=== PATIENT | male | born 1950 | race Caucasian/White ===

== ENCOUNTER → 2016-06-06 | Outpatient (CLI) | payer MEDICARE, OTHER ==
[2016-04-21 15:00] VITALS: BP 81/45
[~2016-06-06] MED LIST: ACET325T9 PO; ALBU2.5V5 NEB; ALBU8.5H3 IH; ASPI81TA2 PO; CALC-47 PO; CHOL4POW PO; CYCL10TA2 PO; DEXA4TAB PO; DICY20TA3 PO; FLUT16SP NS; FURO-69 PO; Ferrous Sulfate PO; GEMF600T PO; GLYB5TAB PO; HYDR25TA9 PO; HYTRIN PO; IBUP200T43 PO; INSU100I16 SQ; LEVO500T38 PO; LIDODERM; LISI-338 PO; Levofloxacin PO; MAG DELAY64 MG PO; MORP15TA PO; MORP30TA3 PO; OMEP20TA PO; ONDA8TAB12 PO; PROC10TA57 PO; TAMS0.4C97 PO; TERA2CAP3 PO; TIOT18CA IH; TRAZ50TA15 PO; VANC1PLA10 IV; triglide PO
--- NOTE | 2016-06-06 09:59 | RAD ---
EXAM: Head CT without contrast. HISTORY: Fall. TECHNIQUE: Computed tomographic images of the head were obtained without contrast. COMPARISON: None. FINDINGS: There is no evidence of hemorrhage. There is no mass effect or midline shift. There is agenesis of the corpus callosum. There is ex vacuo dilatation of the occipital and temporal horns of the lateral ventricles due to surrounding cerebral volume loss. There is slight ectopia of the right cerebellar tonsils. The quintero-white matter differentiation pattern is intact. The orbits, paranasal sinuses and mastoid air cells are unremarkable. No calvarial lesion is seen. There is slight increased density within the right posterior scalp due to scarring or a soft tissue contusion. IMPRESSION: 1. No acute intracranial finding. 2. Slight increased density within the right posterior scalp due to scarring or a contusion. 3. Agenesis of the corpus callosum and dilated posterior lateral ventricles due to posterior cerebral volume loss. 4. Suspected slight ectopia of the right cerebellar tonsils. PQRS Compliance Statement: One or more of the following individualized dose reduction techniques were utilized for this examination: 1. Automated exposure control 2. Adjustment of the mA and/or kV according to patient size 3. Use of iterative reconstruction technique
== END | disposition home or self-care (01) ==
LOC: CT 09:11
PROVIDERS: ATTEND Family Medicine
DX: S00.80XD Unspecified superficial injury of other part of head, subsequent encounter (principal); Z79.01 Long term (current) use of anticoagulants; W19.XXXD Unspecified fall, subsequent encounter; F17.200 Nicotine dependence, unspecified, uncomplicated
CPT/HCPCS: 70450

== ENCOUNTER 2016-06-16 11:53 | Inpatient (IN) | payer MEDICARE, OTHER ==
[~2016-06-16] VITALS: Ht 177.8 cm; Wt 73.5 kg
[~2016-06-16 11:53] MED LIST changes: -ALBU2.5V5 NEB; -DEXA4TAB PO; -FLUT16SP NS; -Ferrous Sulfate PO; -Levofloxacin PO; -MORP15TA PO; -TAMS0.4C97 PO; -VANC1PLA10 IV; -triglide PO
[2016-06-16] MEDS ORDERED: ONDANSETRON PF 4 MG/2 ML VIAL. IV PRN (12:30)
[2016-06-16] MEDS ORDERED: DIPHENHYDRAMINE HCL 25 MG CAPSULE PO PRN (12:30)
[2016-06-16] MEDS: INSULIN ASPART 300 UNITS/3 ML INSULN.PEN SQ SCH ×3 (12:30→20:40)
[2016-06-16] MEDS ORDERED: DEXTROSE 50% 25 GM / 50ML DISP.SYRIN. IV PRN (12:30)
[2016-06-16] MEDS ORDERED: PROCHLORPERAZINE 10 MG TABLET. PO PRN (12:45)
[2016-06-16] MEDS ORDERED: ACETAMINOPHEN 325 MG TABLET PO PRN (12:45)
[2016-06-16] MEDS ORDERED: IBUPROFEN 800 MG TABLET. PO PRN (12:45)
[2016-06-16] MEDS ORDERED: CYCLOBENZAPRINE 10 MG TABLET. PO PRN (12:45)
[2016-06-16 12:58] LABS: BASO % 0 % (0-3); EOS % 1 % (0-3); HEMATOCRIT 20.6 % (39.0-53.0); HEMOGLOBIN 7.1 g/dL (13.0-17.5); LYMPH # 1.1 x10^3/uL (1.0-4.8); LYMPH % 27 % (24-48); MEAN CORPUSCULAR HEMOGLOBIN 36 pg (25-35); MEAN CORPUSCULAR HGB CONC 34 g/dL (31-37); MEAN CORPUSCULAR VOLUME 106 fL (79-100); MONO # 0.6 x10^3/uL (0.0-1.1); MONO % 15 % (0-9); NEUT # 2.3 x10^3uL (1.8-7.7); NEUT % 56 % (31-73); PLATELET COUNT 90 x10^3/uL (140-400); RED BLOOD COUNT 1.94 x10^6/uL (4.30-5.70); RED CELL DISTRIBUTION WIDTH 20.5 % (11.5-14.5)
[2016-06-16 13:15] LABS: ALBUMIN 2.7 g/dL (3.4-5.0); ALBUMIN/GLOBULIN RATIO 0.9 (1.0-1.7); CALCIUM 7.6 mg/dL (8.5-10.1); CREATININE 1.3 mg/dL (0.7-1.3); GFR 55.1; POTASSIUM 4.3 mmol/L (3.5-5.1); TOTAL BILIRUBIN 0.4 mg/dL (0.2-1.0); TOTAL PROTEIN 5.8 g/dL (6.4-8.2)
[2016-06-16] MEDS: MORPHINE SULFATE 5 MG/ML SYRINGE. IV PRN ×2 (13:24→20:07)
[2016-06-16] MEDS: FUROSEMIDE 20 MG/2 ML VIAL IVP SCH (13:24)
[2016-06-16] MEDS ORDERED: TAMS0.4C97 PO (13:37)
[2016-06-16] MEDS ORDERED: MORP15TA PO (13:37)
[2016-06-16] MEDS ORDERED: ONDANSETRON ODT 4 MG TAB.RAPDIS PO PRN (13:45)
[2016-06-16] MEDS ORDERED: triglide PO (13:45)
[2016-06-16] MEDS ORDERED: DEXA4TAB PO (13:47)
[2016-06-16] MEDS ORDERED: FLUT16SP NS (13:50)
[2016-06-16 13:51] LABS: ANISOCYTOSIS MOD; PLT ESTIMATE DECREASED (ADEQUATE)
--- NOTE | 2016-06-16 13:51 | RAD ---
Bilateral lower extremity venous Doppler ultrasound History: Right greater than left lower extremity swelling. Comparison: Bilateral lower extremity venous Doppler 08/27/2015. Procedure: Color Doppler, spectral Doppler, and grayscale images are obtained with and without compression in the area of the common femoral vein, superficial femoral vein - femoral vein junction, main femoral vein (superficial femoral vein) and popliteal vein. Veins of the proximal calf are also imaged. Findings: There is normal duplex flow, color flow and compressibility of all visualized vein segments. No evidence of deep venous thrombosis is present. Impression: No evidence of lower extremity deep venous thrombosis.
[2016-06-16 13:52] LABS: POLYCHROMASIA SLIGHT; TEAR DROP CELLS OCC
[2016-06-16 13:53] LABS: POIKILOCYTOSIS SLIGHT
[2016-06-16 13:54] LABS: OVALOCYTES FEW
[2016-06-16 13:55] LABS: SCHISTOCYTES OCC
[2016-06-16 14:05] LABS: SEDIMENTATION RATE 42 (0-15)
[2016-06-16 14:11] VITALS: BP 127/71
[2016-06-16] MEDS: DICYCLOMINE HCL 20 MG TABLET PO SCH ×3 (14:48→20:05)
--- NOTE | 2016-06-16 14:59 | RAD ---
Chest, 2 views, 06/16/2016: History: Shortness of breath Comparison is made to a study from 04/21/2016. A left-sided Port-A-Cath remains in place extending to the level of the atriocaval junction. Spinal stimulator leads extend into the mid thoracic spinal canal. The heart size is normal. The lungs are hyperexpanded. Previously seen right upper lobe infiltrate has largely cleared. There are scattered parenchymal scars. There is new mild right middle lobe infiltrate. No pleural fluid or pneumothorax is evident. Old healed rib fractures are present on the left. IMPRESSION: 1. Emphysema with parenchymal scarring. 2. Interval clearing of the previously seen right upper lobe pneumonia. 3. New mild right middle lobe infiltrate suggesting pneumonia.
[2016-06-16] MEDS ORDERED: VANCOMYCIN 1.75 GM in IV NORMAL SALINE 500ML 500 ML IV ONE (15:00)
[2016-06-16 15:14] VITALS: BP 108/71
[2016-06-16] MEDS: VANCOMYCIN PER PHARMACY MC PRN (16:00)
[2016-06-16] MEDS ORDERED: INSULN ASP PRT/INSULIN ASPART 300 UNITS/3 ML INSULN.PEN. SQ SCH (16:30)
[2016-06-16] MEDS: CALCIUM CARB/VIT D3 500/200 TABLET PO SCH (17:05)
[2016-06-16 18:24] LABS: BILIRUBIN,URINE NEG (NEG); CLARITY,URINE CLEAR; COLOR,URINE STRAW; GLUCOSE,URINE NEG (NEG)
[2016-06-16 18:25] LABS: BACTERIA,URINE 0 /HPF (0-FEW); NITRITE,URINE NEG (NEG); RBC,URINE OCC /HPF (0-2); UROBILINOGEN,URINE 0.2 mg/dL (0.2 mg/dL); WBC,URINE OCC /HPF (0-4)
[2016-06-16 19:00] VITALS: BP 115/68
[2016-06-16] MEDS: ALBUTEROL SULFATE 2.5 MG/3 ML NEBU. NEB SCH (20:00)
[2016-06-16] MEDS: GEMFIBROZIL 600 MG TABLET. PO SCH (20:06)
[2016-06-16] MEDS: GLYBURIDE 5 MG TABLET PO SCH (20:06)
[2016-06-16] MEDS ORDERED: ALBUTEROL SULFATE 8GM INHALER. IH SCH (21:00)
[2016-06-16] MEDS: TAMSULOSIN 0.4 MG CAP.ER.24H. PO SCH (21:00)
[2016-06-16] MEDS ORDERED: MORPHINE ER 30 MG TABLET.ER PO SCH (21:00)
[2016-06-16] MEDS ORDERED: traZODone 50 MG TABLET. PO SCH (21:00)
[2016-06-16] MEDS: MORPHINE SULFATE 10 MG/ML SYRINGE. IV PRN (22:50)
[2016-06-16 23:33] VITALS: BP 128/76
[2016-06-17 06:47] VITALS: BP 104/57
[2016-06-17] MEDS: INSULIN ASPART 300 UNITS/3 ML INSULN.PEN SQ SCH ×4 (07:30→21:00)
[2016-06-17] MEDS ORDERED: TAMSULOSIN 0.4 MG CAP.ER.24H. PO SCH (08:00)
[2016-06-17] MEDS: CHOLESTYRAMINE/ASPARTAME 4 GM PACKET PO SCH (08:09)
[2016-06-17] MEDS: DICYCLOMINE HCL 20 MG TABLET PO SCH ×4 (08:09→20:04)
[2016-06-17] MEDS: PANTOPRAZOLE 40 MG TABLET. PO SCH (08:09)
[2016-06-17] MEDS: FUROSEMIDE 20 MG/2 ML VIAL IVP SCH (08:09)
[2016-06-17] MEDS: ASPIRIN 81 MG TAB.CHEW PO SCH (08:09)
[2016-06-17] MEDS: CALCIUM CARB/VIT D3 500/200 TABLET PO SCH ×2 (08:09→16:55)
[2016-06-17 08:37] LABS: BASO % 0 % (0-3); EOS % 1 % (0-3); HEMATOCRIT 22.1 % (39.0-53.0); HEMOGLOBIN 7.6 g/dL (13.0-17.5); LYMPH % 20 % (24-48); MEAN CORPUSCULAR HEMOGLOBIN 36 pg (25-35); MEAN CORPUSCULAR HGB CONC 34 g/dL (31-37); MEAN CORPUSCULAR VOLUME 106 fL (79-100); MONO % 20 % (0-9); NEUT % 60 % (31-73); PLATELET COUNT 84 x10^3/uL (140-400); RED BLOOD COUNT 2.08 x10^6/uL (4.30-5.70); RED CELL DISTRIBUTION WIDTH 21.5 % (11.5-14.5)
[2016-06-17 08:44] LABS: ALBUMIN 2.5 g/dL (3.4-5.0); ALBUMIN/GLOBULIN RATIO 0.8 (1.0-1.7); CALCIUM 7.7 mg/dL (8.5-10.1); CREATININE 1.3 mg/dL (0.7-1.3); GFR 55.1; POTASSIUM 4.2 mmol/L (3.5-5.1); TOTAL BILIRUBIN 0.5 mg/dL (0.2-1.0); TOTAL PROTEIN 5.7 g/dL (6.4-8.2)
[2016-06-17] MEDS ORDERED: HYTRIN PO SCH (09:00)
[2016-06-17] MEDS ORDERED: LISINOPRIL 5 MG TABLET. PO SCH (09:00)
[2016-06-17] MEDS ORDERED: HYDROCHLOROTHIAZIDE 25 MG TABLET PO SCH (09:00)
[2016-06-17] MEDS ORDERED: MAGNESIUM CHLORIDE ER 64 MG TABLET.ER PO SCH (09:00)
[2016-06-17] MEDS ORDERED: TERAZOSIN 1 MG CAPSULE. PO SCH (09:00)
[2016-06-17 09:28] LABS: % BANDS 5 % (0-9); % BASOS 0 % (0-3); % EOS 2 % (0-5); % LYMPHS 27 % (24-48); % MONOS 6 % (0-10); % SEGS 60 % (35-66); ANISOCYTOSIS MOD; PLT ESTIMATE DECREASED (ADEQUATE); POIKILOCYTOSIS PRESENT
[2016-06-17 09:29] LABS: SCHISTOCYTES OCC
[2016-06-17] MEDS ORDERED: ENOXAPARIN 40 MG/0.4 ML DISP.SYRIN. SQ SCH (09:45)
[2016-06-17 10:09] VITALS: BP 114/66
[2016-06-17] MEDS: ALBUTEROL SULFATE 2.5 MG/3 ML NEBU. NEB SCH ×2 (11:49→20:38)
--- NOTE | 2016-06-17 13:07 | PN ---
DATE: 06/17/2016 SUBJECTIVE: A 65-year-old gentleman in with cellulitis to his right lower leg as well as pneumonia. The patient says he is feeling somewhat better this morning. He is on IV antibiotic therapy as well as some IV Lasix and making good progress overall. Otherwise, the patient seems to be resting fairly comfortably. Vital signs include blood pressure of 105/60, respiratory rate 18, pulse 70, afebrile, good oxygen saturation 94%. Chest x-ray as noted, there is a right upper lobe infiltrative process. The venous Dopplers were negative for blood clots. Otherwise, we will go ahead and get a D-dimer and make further evaluation on him as indicated. PHYSICAL EXAMINATION: LUNGS: Otherwise, lungs diminished but clear, somewhat coarse breath sounds in the right lung. CARDIOVASCULAR: Regular sinus rhythm. ABDOMEN: Soft, nontender. EXTREMITIES: Right leg less swollen and was markedly erythematous and swollen. He has wrinkling noted, less intense redness. Pulses noted distally. The patient continued to be monitored continue on IV antibiotic therapy. IMPRESSION: Cellulitis of the right lower leg as well as pneumonia and the patient receiving chemotherapy, immunocompromised. Ydptipiv-dv-klzwzt protein malnutrition, albumin 2.7. MARCE WARREN MD DR: HERB/hernan JOB#: [id number] / [id number]
[2016-06-17 14:31] VITALS: BP 107/67
[2016-06-17] MEDS: VANCOMYCIN 1 GM in IV NORMAL SALINE 250ML 250 ML IV SCH (15:41)
[2016-06-17] MEDS ORDERED: IV NORMAL SALINE 250ML 250 ML ONE (15:43)
[2016-06-17 19:08] LABS: IRON,SERUM 22 ug/dL (65-175)
[2016-06-17 19:51] VITALS: BP 109/68
[2016-06-17] MEDS: GEMFIBROZIL 600 MG TABLET. PO SCH (20:03)
[2016-06-17] MEDS: TAMSULOSIN 0.4 MG CAP.ER.24H. PO SCH (20:03)
[2016-06-17] MEDS: MORPHINE SULFATE 5 MG/ML SYRINGE. IV PRN (20:04)
[2016-06-17] MEDS: GLYBURIDE 5 MG TABLET PO SCH (21:00)
[2016-06-17 23:07] LABS: HEMOGLOBIN A1C 7.5 % (4.8-5.6)
[2016-06-18] VITALS (13 sets, daily range): BP systolic 98–137; BP diastolic 58–79
[2016-06-18] MEDS: MORPHINE SULFATE 5 MG/ML SYRINGE. IV PRN ×3 (02:05→23:13)
[2016-06-18 06:17] LABS: BASO % 0 % (0-3); EOS % 1 % (0-3); LYMPH # 1.1 x10^3/uL (1.0-4.8); LYMPH % 28 % (24-48); MEAN CORPUSCULAR HEMOGLOBIN 37 pg (25-35); MEAN CORPUSCULAR HGB CONC 35 g/dL (31-37); MEAN CORPUSCULAR VOLUME 105 fL (79-100); MONO # 0.9 x10^3/uL (0.0-1.1); MONO % 24 % (0-9); NEUT # 1.8 x10^3uL (1.8-7.7); NEUT % 46 % (31-73); PLATELET COUNT 71 x10^3/uL (140-400); RED BLOOD COUNT 1.79 x10^6/uL (4.30-5.70); RED CELL DISTRIBUTION WIDTH 20.5 % (11.5-14.5); WHITE BLOOD COUNT 3.8 x10^3/uL (4.0-11.0)
[2016-06-18 06:18] LABS: CALCIUM 7.5 mg/dL (8.5-10.1); CREATININE 1.2 mg/dL (0.7-1.3); GFR 60.4; POTASSIUM 3.9 mmol/L (3.5-5.1)
[2016-06-18 06:22] LABS: HEMATOCRIT 18.7 % (39.0-53.0); HEMOGLOBIN 6.5 g/dL (13.0-17.5)
[2016-06-18] MEDS: INSULIN ASPART 300 UNITS/3 ML INSULN.PEN SQ SCH ×4 (07:30→21:00)
[2016-06-18] MEDS ORDERED: IV NORMAL SALINE 250ML 250 ML ONE (08:18)
[2016-06-18] MEDS: FUROSEMIDE 20 MG/2 ML VIAL IVP SCH (08:23)
[2016-06-18] MEDS: DICYCLOMINE HCL 20 MG TABLET PO SCH ×4 (08:29→20:05)
[2016-06-18] MEDS: PANTOPRAZOLE 40 MG TABLET. PO SCH (08:29)
[2016-06-18] MEDS: ASPIRIN 81 MG TAB.CHEW PO SCH (08:29)
[2016-06-18] MEDS: CALCIUM CARB/VIT D3 500/200 TABLET PO SCH ×2 (08:29→17:39)
[2016-06-18] MEDS: CHOLESTYRAMINE/ASPARTAME 4 GM PACKET PO SCH (08:29)
[2016-06-18] MEDS ORDERED: ZINC OXIDE 4IN X 10YD TOPICAL BANDAGE TP ONE (09:45)
[2016-06-18] MEDS: ALBUTEROL SULFATE 2.5 MG/3 ML NEBU. NEB SCH ×2 (10:45→20:50)
[2016-06-18] MEDS ORDERED: DIPHENHYDRAMINE HCL 25 MG CAPSULE PO PRN (12:30)
[2016-06-18] MEDS: VANCOMYCIN 1 GM in IV NORMAL SALINE 250ML 250 ML IV SCH ×2 (14:46→21:56)
[2016-06-18 15:33] LABS: VANC TR 9.2 mcg/mL (10.0-20.0)
[2016-06-18] MEDS: VANCOMYCIN PER PHARMACY MC PRN (16:05)
[2016-06-18] MEDS: GEMFIBROZIL 600 MG TABLET. PO SCH (20:05)
[2016-06-18] MEDS: TAMSULOSIN 0.4 MG CAP.ER.24H. PO SCH (20:05)
[2016-06-18] MEDS: GLYBURIDE 5 MG TABLET PO SCH (21:00)
[2016-06-18] MEDS ORDERED: TAMSULOSIN 0.4 MG CAP.ER.24H. PO SCH (21:00)
[2016-06-18 21:19] LABS: FECAL OB PT NEGATIVE (NEG)
[2016-06-18 22:37] LABS: BILIRUBIN,URINE NEG (NEG); CLARITY,URINE CLEAR; COLOR,URINE STRAW; GLUCOSE,URINE NEG (NEG)
[2016-06-18 22:38] LABS: BACTERIA,URINE FEW /HPF (0-FEW); NITRITE,URINE NEG (NEG); RBC,URINE OCC /HPF (0-2); SQUAMOUS EPITHELIAL CELL,UR OCC /LPF; UROBILINOGEN,URINE 0.2 mg/dL (0.2 mg/dL); WBC,URINE OCC /HPF (0-4)
[2016-06-18 22:58] LABS: HEMATOCRIT 24.4 % (39.0-53.0); HEMOGLOBIN 8.5 g/dL (13.0-17.5)
[2016-06-19 00:21] VITALS: BP 113/79
[2016-06-19 05:27] LABS: BASO % 0 % (0-3); EOS % 0 % (0-3); HEMATOCRIT 24.3 % (39.0-53.0); HEMOGLOBIN 8.4 g/dL (13.0-17.5); LYMPH # 1.1 x10^3/uL (1.0-4.8); LYMPH % 23 % (24-48); MEAN CORPUSCULAR HEMOGLOBIN 34 pg (25-35); MEAN CORPUSCULAR HGB CONC 35 g/dL (31-37); MEAN CORPUSCULAR VOLUME 99 fL (79-100); MONO # 0.9 x10^3/uL (0.0-1.1); MONO % 19 % (0-9); NEUT # 2.7 x10^3uL (1.8-7.7); NEUT % 57 % (31-73); PLATELET COUNT 67 x10^3/uL (140-400); RED BLOOD COUNT 2.46 x10^6/uL (4.30-5.70); RED CELL DISTRIBUTION WIDTH 21.4 % (11.5-14.5); WHITE BLOOD COUNT 4.7 x10^3/uL (4.0-11.0)
[2016-06-19] MEDS: MORPHINE SULFATE 5 MG/ML SYRINGE. IV PRN (05:27)
[2016-06-19 05:28] LABS: CALCIUM 7.4 mg/dL (8.5-10.1); CREATININE 1.1 mg/dL (0.7-1.3); GFR 66.8; POTASSIUM 3.5 mmol/L (3.5-5.1)
[2016-06-19 05:35] VITALS: BP 114/74
[2016-06-19] MEDS: INSULIN ASPART 300 UNITS/3 ML INSULN.PEN SQ SCH ×4 (07:28→20:29)
[2016-06-19] MEDS: CALCIUM CARB/VIT D3 500/200 TABLET PO SCH ×2 (07:31→17:26)
[2016-06-19] MEDS: PANTOPRAZOLE 40 MG TABLET. PO SCH (07:31)
[2016-06-19] MEDS: MORPHINE SULFATE 10 MG/ML SYRINGE. IV PRN ×3 (07:45→20:27)
[2016-06-19] MEDS: DICYCLOMINE HCL 20 MG TABLET PO SCH ×4 (09:07→20:23)
[2016-06-19] MEDS: ASPIRIN 81 MG TAB.CHEW PO SCH (09:07)
[2016-06-19] MEDS: VANCOMYCIN 1 GM in IV NORMAL SALINE 250ML 250 ML IV SCH ×2 (09:08→20:22)
[2016-06-19] MEDS: FUROSEMIDE 20 MG/2 ML VIAL IVP SCH (09:09)
[2016-06-19] MEDS: ALBUTEROL SULFATE 2.5 MG/3 ML NEBU. NEB SCH ×2 (09:25→21:22)
[2016-06-19] MEDS: CHOLESTYRAMINE/ASPARTAME 4 GM PACKET PO SCH (10:04)
[2016-06-19 11:00] VITALS: BP 122/65
[2016-06-19] MEDS: FERROUS SULFATE 325 MG TABLET PO SCH (11:26)
[2016-06-19 20:09] VITALS: BP 99/59
[2016-06-19] MEDS: TAMSULOSIN 0.4 MG CAP.ER.24H. PO SCH (20:23)
[2016-06-19] MEDS: GEMFIBROZIL 600 MG TABLET. PO SCH (20:23)
[2016-06-19] MEDS: GLYBURIDE 5 MG TABLET PO SCH (20:35)
--- NOTE | 2016-06-19 22:19 | PN ---
DATE: SUBJECTIVE: The patient is a gentleman admitted for cellulitis to his legs as well as pneumonia and in those regards seems to be doing much better. He also had loss of blood, not quite sure where is this getting from, may have been related to his chemotherapy ____ up to 8.4, 24 hours after 2 units of packed RBCs. He had an elevated temperature with it but Benadryl brought it down. He says he feels much better this morning. OBJECTIVE: VITAL SIGNS: Blood pressure 110/70, respiratory rate 20, pulse 70, afebrile. LUNGS: Clear. CARDIOVASCULAR: Regular sinus rhythm. ABDOMEN: Soft. EXTREMITIES: Left lower leg markedly more petechial than it is hard, but we will continue with dressings on him. He seems to be making good progress overall and will continue to be on IV antibiotic therapy. We will repeat chest x-ray in the morning and see if that pneumonia clears. IMPRESSION: Pneumonia of unspecified etiology, cellulitis of the left lower extremity, anemia, probably secondary to chemotherapy and history of pancreatic cancer. MARCE WARREN MD DR: HERB/hernan JOB#: [id number] / [id number]
[2016-06-19 23:35] VITALS: BP 103/63
[2016-06-20] MEDS: MORPHINE SULFATE 10 MG/ML SYRINGE. IV PRN ×2 (02:30→08:40)
[2016-06-20 06:15] LABS: BASO % 0 % (0-3); EOS % 1 % (0-3); HEMATOCRIT 24.2 % (39.0-53.0); HEMOGLOBIN 8.4 g/dL (13.0-17.5); LYMPH # 1.1 x10^3/uL (1.0-4.8); LYMPH % 23 % (24-48); MEAN CORPUSCULAR HEMOGLOBIN 35 pg (25-35); MEAN CORPUSCULAR HGB CONC 35 g/dL (31-37); MEAN CORPUSCULAR VOLUME 100 fL (79-100); MONO # 0.9 x10^3/uL (0.0-1.1); MONO % 19 % (0-9); NEUT # 2.7 x10^3uL (1.8-7.7); NEUT % 57 % (31-73); PLATELET COUNT 78 x10^3/uL (140-400); RED BLOOD COUNT 2.42 x10^6/uL (4.30-5.70); RED CELL DISTRIBUTION WIDTH 21.4 % (11.5-14.5); WHITE BLOOD COUNT 4.8 x10^3/uL (4.0-11.0)
[2016-06-20 06:25] LABS: CALCIUM 7.3 mg/dL (8.5-10.1); CREATININE 1.1 mg/dL (0.7-1.3); GFR 66.8; POTASSIUM 3.9 mmol/L (3.5-5.1)
[2016-06-20 07:01] LABS: % BANDS 2 % (0-9); % EOS 1 % (0-5); % LYMPHS 20 % (24-48); % METAS 1 % (0-0); % MONOS 12 % (0-10); % SEGS 64 % (35-66); NUCLEATED RBC 1
[2016-06-20 07:02] LABS: PLT ESTIMATE DECREASED (ADEQUATE); POLYCHROMASIA MOD; TOXIC GRANULATION SLIGHT
[2016-06-20 07:04] LABS: ANISOCYTOSIS MOD
[2016-06-20 07:05] LABS: OVALOCYTES OCC; TEAR DROP CELLS OCC
[2016-06-20 07:09] LABS: SCHISTOCYTES OCC
[2016-06-20] MEDS: INSULIN ASPART 300 UNITS/3 ML INSULN.PEN SQ SCH ×2 (07:30→12:11)
[2016-06-20] MEDS: ASPIRIN 81 MG TAB.CHEW PO SCH (08:33)
[2016-06-20] MEDS: DICYCLOMINE HCL 20 MG TABLET PO SCH ×2 (08:33→13:41)
[2016-06-20] MEDS: CALCIUM CARB/VIT D3 500/200 TABLET PO SCH (08:33)
[2016-06-20] MEDS: CHOLESTYRAMINE/ASPARTAME 4 GM PACKET PO SCH (08:33)
[2016-06-20] MEDS: PANTOPRAZOLE 40 MG TABLET. PO SCH (08:33)
[2016-06-20] MEDS: FUROSEMIDE 20 MG/2 ML VIAL IVP SCH (08:34)
[2016-06-20] MEDS: VANCOMYCIN 1 GM in IV NORMAL SALINE 250ML 250 ML IV SCH (08:39)
[2016-06-20 09:12] LABS: VANC TR 18.2 mcg/mL (10.0-20.0)
[2016-06-20] MEDS: VANCOMYCIN PER PHARMACY MC PRN (09:52)
[2016-06-20] MEDS: ALBUTEROL SULFATE 2.5 MG/3 ML NEBU. NEB SCH (10:43)
--- NOTE | 2016-06-20 10:51 | PN ---
DATE: He is on ICU bed #6. SUBJECTIVE: The patient, of course, came in initially with cellulitis to his leg as well as pneumonia; however, during the night, his hemoglobin dropped down to 6.5 and 18 this morning, white count dropped down to 3.8. He says he does see any signs of bleeding. He does have a colostomy bag and that is negative, so where this blood is going is another issue. PHYSICAL EXAMINATION: GENERAL: He is alert and oriented. His speech is fluent, spontaneous. He is bright as usual. VITAL SIGNS: Blood pressure 98/60, respiratory rate 18, pulse 76. He has been in low-grade temperature. LUNGS: Otherwise, lungs are diminished. Some crackles in the right lung base of the lung. CARDIOVASCULAR: Regular sinus rhythm. ABDOMEN: Soft, nontender. Colostomy bag intact. EXTREMITIES: No clubbing or cyanosis. Marked erythema noted to the left lower leg, but markedly improved. IMPRESSION: Therefore of cellulitis to the leg, pneumonia of unspecified etiology, history of pancreatic cancer, now anemia, probable acute gastrointestinal bleed, cellulitis to the leg, immunocompromised secondary to chemotherapy, afezoxjc-xl-xrkxax protein malnutrition. PLAN: Continue with blood transfusions, IV antibiotic therapy and close monitoring. MARCE WARREN MD DR: HERB/hernan JOB#: [id number] / [id number]
[2016-06-20 11:09] VITALS: BP 114/76
--- NOTE | 2016-06-20 11:45 | DS ---
DATE OF DISCHARGE: 06/20/2016 HOSPITAL COURSE: The patient is a 65-year-old gentleman who is being treated for pancreatic cancer at , came in with cellulitis to his right lower leg. The patient was placed on IV antibiotic therapy, already had a port in place and continued IV antibiotic therapy through the report. He was noted on regular chest x-ray that he had some pneumonic process. Continued on IV antibiotic therapy for that as well as leg got improved and he made good progress there. His hemoglobin, however, did drop down to 6.5 and 18.7. Blood transfusion of 2 units packed to 8.4 and 24, probably secondary to his chemotherapy. Otherwise, his blood sugars were up and down as he is diabetic and the patient's vancomycin levels were followed by pharmacy. In any case, the patient made good progress during the rest of his hospitalization and he was discharged home to follow up with for his pancreatic cancer. His will continue IV antibiotic therapy for his leg and pneumonia as an outpatient. He has CESAR hose some type of Unna boot to that right lower leg, but that markedly improved as well. IMPRESSION: Therefore, cellulitis to the right lower leg, pneumonia of unspecified etiology, immunocompromised patient secondary to chemotherapy, pancreatic cancer, moderate to severe protein malnutrition. MARCE WARREN MD DR: HERB/hernan JOB#: [id number] / [id number]
[2016-06-20] MEDS: FERROUS SULFATE 325 MG TABLET PO SCH (12:09)
[2016-06-20] MEDS ORDERED: VANC1PLA10 IV (12:47)
[2016-06-20] MEDS ORDERED: ALBU2.5V5 NEB (12:47)
[2016-06-20] MEDS ORDERED: Ferrous Sulfate PO (12:47)
[2016-06-20] MEDS ORDERED: Levofloxacin PO (13:46)
[2016-06-20] MEDS ORDERED: VANCOMYCIN 1 GM in IV NORMAL SALINE 250ML 250 ML IV ONE (14:00)
[2016-06-20] MEDS ORDERED: LEVOFLOXACIN 750 MG TABLET PO SCH (21:00)
== END 2016-06-20 15:30 | disposition home health service (06) | DRG 435 ==
LOC: ICU 11:53
PROVIDERS: ADMIT Family Medicine; ATTEND Family Medicine
PROC: 30233N1 Transfusion of Nonautologous Red Blood Cells into Peripheral Vein, Percutaneous Approach (ICD-10-PCS; principal; 2016-06-18)
DX: C25.0 Malignant neoplasm of head of pancreas (principal); J18.9 Pneumonia, unspecified organism; E43 Unspecified severe protein-calorie malnutrition; L03.115 Cellulitis of right lower limb; L03.116 Cellulitis of left lower limb; C25.2 Malignant neoplasm of tail of pancreas; E11.9 Type 2 diabetes mellitus without complications; T45.1X5A Adverse effect of antineoplastic and immunosuppressive drugs, initial encounter; Z79.899 Other long term (current) drug therapy; Z87.01 Personal history of pneumonia (recurrent); Z68.23 Body mass index [BMI] 23.0-23.9, adult; D63.0 Anemia in neoplastic disease
CPT/HCPCS: 36415; 71020; 80048; 80053; 80202; 81001; 82274; 82947; 83036; 83540; 83550; 83605; 83880; 85007; 85008; 85014; 85018; 85027; 85379; 85651; 86140; 86850; 86900; 86901; 86920; 87040; 87641; 93970; 94640; J1650; J1815; J1956; J2270; J3370; J7040; J7050; J7613; P9016; Q0163; 97116; 97530

== ENCOUNTER 2016-12-26 14:24 | Inpatient (IN) | payer MEDICARE, OTHER ==
[~2016-12-26] VITALS: Ht 177.8 cm; Wt 69.5 kg
[~2016-12-26 14:24] MED LIST changes: +ALBU2.5V5 NEB; -ALBU8.5H3 IH; +ALBU8.5H8 IH; +ASPI-630 PO; -ASPI81TA2 PO; +CALC-157 PO; -CALC-47 PO; +CYCL-331 PO; -CYCL10TA2 PO; +DEXA4TAB PO; +FLUT16SP21 NS; +Ferrous Sulfate PO; -LEVO500T38 PO; +LEVO500T59 PO; +Levofloxacin PO; +MORP15TA PO; -OMEP20TA PO; +OMEP20TA8 PO; +TAMS0.4C97 PO; +VANC1PLA10 IV; +triglide PO
[2016-12-26 17:02] VITALS: BP 111/66
[2016-12-26] MEDS ORDERED: FUROSEMIDE 40 MG/4 ML VIAL IVP ONE (17:45)
[2016-12-26 19:22] VITALS: BP 115/54
[2016-12-26] MEDS ORDERED: CYCLOBENZAPRINE 10 MG TABLET. PO PRN (19:45)
[2016-12-26] MEDS ORDERED: ALBUTEROL SULFATE 8GM INHALER. IH PRN (19:45)
[2016-12-26] MEDS ORDERED: ACETAMINOPHEN 325 MG TABLET PO PRN (19:45)
[2016-12-26] MEDS ORDERED: PROCHLORPERAZINE 5 MG TABLET. PO PRN (19:45)
[2016-12-26 20:10] LABS: ALBUMIN 2.5 g/dL (3.4-5.0); CALCIUM 7.7 mg/dL (8.5-10.1); CREATININE 3.6 mg/dL (0.7-1.3); GFR 16.9; POTASSIUM 5.1 mmol/L (3.5-5.1); TOTAL BILIRUBIN 0.9 mg/dL (0.2-1.0); TOTAL PROTEIN 5.1 g/dL (6.4-8.2)
[2016-12-26] MEDS ORDERED: IPRATRPIUM/ALBUTEROL 0.5/2.5MG 3 ML NEBU. ONE (20:26)
[2016-12-26 20:54] LABS: BASO % 0 % (0-3); EOS % 0 % (0-3); HEMATOCRIT 23.4 % (39.0-53.0); LYMPH % 7 % (24-48); MEAN CORPUSCULAR HEMOGLOBIN 39 pg (25-35); MEAN CORPUSCULAR HGB CONC 34 g/dL (31-37); MEAN CORPUSCULAR VOLUME 112 fL (79-100); MONO # 2.3 x10^3/uL (0.0-1.1); MONO % 16 % (0-9); NEUT # 11.1 x10^3uL (1.8-7.7); NEUT % 76 % (31-73); PLATELET COUNT 151 x10^3/uL (140-400); RED BLOOD COUNT 2.08 x10^6/uL (4.30-5.70); RED CELL DISTRIBUTION WIDTH 20.7 % (11.5-14.5); WHITE BLOOD COUNT 14.5 x10^3/uL (4.0-11.0)
[2016-12-26] MEDS: ALBUTEROL SULFATE 2.5 MG/3 ML NEBU. NEB SCH (20:56)
[2016-12-26] MEDS ORDERED: SOD CHLORIDE IV SCH (21:00)
[2016-12-26] MEDS ORDERED: CIPROFLOXACIN 400MG PREMIX 200 ML IV SCH (21:00)
[2016-12-26] MEDS ORDERED: VANCOMYCIN IV SCH (21:00)
[2016-12-26] MEDS ORDERED: [UNRECOGNIZED DRUG - OTHER] IV SCH (21:00)
[2016-12-26] MEDS ORDERED: ALBUTEROL SULFATE 2.5 MG/3 ML NEBU. NEB PRN (21:45)
[2016-12-26] MEDS ORDERED: ONDANSETRON ODT 4 MG TAB.RAPDIS PO PRN (21:45)
[2016-12-26] MEDS: GEMFIBROZIL 600 MG TABLET. PO SCH (21:54)
[2016-12-26] MEDS: traZODone 50 MG TABLET. PO SCH (21:54)
[2016-12-26] MEDS: glyBURIDE 5 MG TABLET PO SCH (21:54)
[2016-12-26] MEDS: DICYCLOMINE HCL 20 MG TABLET PO SCH (21:54)
[2016-12-26] MEDS: DEXAMETHASONE 4 MG TABLET PO SCH (21:54)
[2016-12-26] MEDS: ENOXAPARIN 30 MG/0.3 ML DISP.SYRIN. SQ SCH (21:55)
[2016-12-26] MEDS: levoFLOXacin 750 MG TABLET PO SCH (21:56)
[2016-12-26] MEDS ORDERED: VANCOMYCIN 1 GM in IV NORMAL SALINE 250ML 250 ML IV SCH (22:00)
[2016-12-26] MEDS: VANCOMYCIN PER PHARMACY MC PRN (22:16)
[2016-12-26 22:30] LABS: % EOS 1 % (0-5); % LYMPHS 9 % (24-48); % MONOS 10 % (0-10); % SEGS 80 % (35-66)
[2016-12-26 22:36] LABS: PLT ESTIMATE ADEQUATE (ADEQUATE)
[2016-12-26] MEDS ORDERED: MOXI3DRO2 EACHEYE (22:39)
[2016-12-26 22:42] VITALS: BP 104/60
[2016-12-26] MEDS: MOXIFLOXACIN 0.5% OPHTH SOLUTION 3ML BOTTLE. OU SCH (23:10)
[2016-12-27] MEDS ORDERED: ONDANSETRON PO SCH
[2016-12-27 04:18] LABS: BACTERIA,URINE 0 /HPF (0-FEW); BILIRUBIN,URINE NEG (NEG); CLARITY,URINE CLEAR; COLOR,URINE YELLOW; GLUCOSE,URINE NEG (NEG); NITRITE,URINE NEG (NEG); RBC,URINE 0 /HPF (0-2); SQUAMOUS EPITHELIAL CELL,UR FEW /LPF; UROBILINOGEN,URINE 0.2 mg/dL (0.2 mg/dL); WBC,URINE OCC /HPF (0-4)
[2016-12-27 05:20] VITALS: BP 103/59
[2016-12-27 06:21] LABS: BASO % 0 % (0-3); EOS % 0 % (0-3); HEMOGLOBIN 8.6 g/dL (13.0-17.5); LYMPH # 0.3 x10^3/uL (1.0-4.8); LYMPH % 3 % (24-48); MEAN CORPUSCULAR HEMOGLOBIN 39 pg (25-35); MEAN CORPUSCULAR HGB CONC 35 g/dL (31-37); MEAN CORPUSCULAR VOLUME 112 fL (79-100); MONO # 0.4 x10^3/uL (0.0-1.1); MONO % 3 % (0-9); NEUT # 10.8 x10^3uL (1.8-7.7); NEUT % 94 % (31-73); PLATELET COUNT 142 x10^3/uL (140-400); RED BLOOD COUNT 2.23 x10^6/uL (4.30-5.70); RED CELL DISTRIBUTION WIDTH 20.9 % (11.5-14.5); WHITE BLOOD COUNT 11.5 x10^3/uL (4.0-11.0)
[2016-12-27 06:39] LABS: ALBUMIN 2.5 g/dL (3.4-5.0); ALBUMIN/GLOBULIN RATIO 0.9 (1.0-1.7); CALCIUM 7.9 mg/dL (8.5-10.1); CREATININE 3.3 mg/dL (0.7-1.3); GFR 18.7; POTASSIUM 4.9 mmol/L (3.5-5.1); TOTAL PROTEIN 5.2 g/dL (6.4-8.2)
[2016-12-27] MEDS: CALCIUM CARB/VIT D3 500/200 TABLET PO SCH ×2 (08:00→17:00)
[2016-12-27] MEDS: FENOFIBRATE NANOCRYSTALLIZED 145 MG TABLET PO SCH (08:33)
[2016-12-27] MEDS: TAMSULOSIN 0.4 MG CAP.ER.24H. PO SCH (08:33)
[2016-12-27] MEDS: GEMFIBROZIL 600 MG TABLET. PO SCH ×2 (08:33→20:11)
[2016-12-27] MEDS: FUROSEMIDE 40 MG/4 ML VIAL IVP SCH (08:33)
[2016-12-27] MEDS: DICYCLOMINE HCL 20 MG TABLET PO SCH ×4 (08:33→20:11)
[2016-12-27] MEDS: PANTOPRAZOLE 40 MG TABLET. PO SCH (08:33)
[2016-12-27] MEDS: MOXIFLOXACIN 0.5% OPHTH SOLUTION 3ML BOTTLE. OU SCH ×3 (08:34→20:21)
[2016-12-27] MEDS: ASPIRIN 81 MG TAB.CHEW PO SCH (08:34)
[2016-12-27] MEDS: MAGNESIUM CHLORIDE ER 64 MG TABLET.ER PO SCH (08:34)
[2016-12-27] MEDS: MORPHINE IR 15 MG TABLET PO PRN ×2 (08:34→19:33)
[2016-12-27] MEDS: DEXAMETHASONE 4 MG TABLET PO SCH ×3 (08:34→20:11)
[2016-12-27] MEDS: FLUTICASONE 50MCG/NASAL SPRAY 16GM BOTTLE. NS SCH (08:34)
[2016-12-27] MEDS: CHOLESTYRAMINE/ASPARTAME 4 GM PACKET PO SCH (08:34)
--- NOTE | 2016-12-27 08:35 | RAD ---
Indication swelling. Grayscale color Doppler and spectral imaging was performed. Examination was targeted to the veins of the lower extremities. Bilaterally the common femoral, femoral and popliteal vessels demonstrate normal flow compressibility and augmentation. No thrombus is seen. The visualized calf veins, bilaterally, appeared unremarkable. IMPRESSION: Negative bilateral lower extremity venous analysis for DVT
[2016-12-27] MEDS: ALBUTEROL SULFATE 2.5 MG/3 ML NEBU. NEB SCH ×2 (10:02→19:59)
--- NOTE | 2016-12-27 10:41 | RAD ---
Indication: Crohn's disease. Abscess. Pancreatic malignancy Technique: Axial images and coronal and sagittal reformatted images are provided. Oral contrast was administered. Comparison is from April 20, 2016. One or more of the following individualized dose reduction techniques were utilized for this examination: 1. Automated exposure control 2. Adjustment of the mA and/or kV according to patient size 3. Use of iterative reconstruction technique Findings: There is emphysema in the lung bases with left basilar atelectasis and/or infiltrate. There is no pleural effusion. The heart is not enlarged. Solid organ evaluation is limited without contrast. There is again pneumobilia. Gallbladder is absent. Spleen is not enlarged. Pancreas is not well evaluated, pancreatic head may have been resected. There is some soft tissue density in the region of pancreatic head although this is probably nondistended duodenum. There is atrophy of the tail of the pancreas. Gastrohepatic adenopathy has increased in size, 4 x 3 cm.. There is mild nodularity of the left adrenal gland. Both ureters are dilated although there is no obstructing stone apparent. There are calcifications in both kidneys, a few of these appear vascular although 2 calcifications on the left are probably within the collecting system and nonobstructing, up to 2 mm in size. There is atheromatous disease in the abdominal aorta without aneurysm. There are multiple abnormal small bowel loops with mural thickening and fold thickening. There has been bowel resection with decreased number of small bowel loops. Contrast is mostly within the proximal small bowel. No fistulous tract is apparent. No abscess is identified. There is minimal ascites in the left paracolic gutter. There is wide mouth ventral hernia containing small bowel. There is an ostomy in the lower abdomen to the right of midline. Much of the colon appears to be resected. There is a dilated loop of bowel in the left lateral abdomen measuring 3.8 cm, apparently a dilated small bowel loop. The above-described ascites is along this loop. Small bowel loops both proximal and distal to this loop are normal caliber. There is bladder distention. Prostate is enlarged. Calcified phleboliths are noted. There are degenerative changes in the spine. Impression: 1. Patient appears to have underwent Whipple procedure with atrophic pancreatic body and tail. Some fullness in the region of the expected location of the pancreatic head appears to be collapsed duodenal loop. Evaluation is limited without IV contrast. 2. Gastrohepatic adenopathy appears increased. 3. Abnormal mural thickening throughout multiple small bowel loops with fold thickening noted as well compatible with provided history of Crohn's disease. Apparent dilated bowel loop in the left lateral abdomen. Small bowel loops both proximal and distal to this appear normal caliber, raises possibility of closed loop obstruction. 4. Contrast is mainly within the proximal small bowel limiting evaluation of the distal bowel and ileum. There is no definite abscess or free air. Small amount of ascites on the left is noted. 5. Emphysema. 6. Distended bladder with dilated ureters bilaterally. This may be related to outlet obstruction. 7. Enlarged prostate. Correlate with exam findings and PSA value.
[2016-12-27] MEDS: FERROUS SULFATE 325 MG TABLET. PO SCH (10:48)
[2016-12-27] MEDS: MORPHINE ER 30 MG TABLET.ER PO SCH ×2 (10:48→20:20)
[2016-12-27] MEDS: DOCUSATE SODIUM 100 MG CAPSULE PO SCH (10:48)
[2016-12-27 11:23] VITALS: BP 114/62
--- NOTE | 2016-12-27 14:54 | RAD ---
Indication: Elevated d-dimer. Technique: Ventilation imaging utilized 11.8 mCi xenon-133 inhaled. Perfusion imaging utilized 5.5 mCi technetium 99m labeled MAA IV. Chest radiograph from today is available for comparison. Findings: There is homogeneous uptake of radiotracer on ventilation imaging with retention on washout phase. There are a few small defects on perfusion imaging in the upper lobes bilaterally without corresponding finding on ventilation imaging or chest radiograph. Impression: Exam is intermediate probability for pulmonary embolism. Air trapping.
--- NOTE | 2016-12-27 15:31 | RAD ---
Indication shortness of air. A single view of the chest was obtained and is compared to a study 06/16/2016. Background changes compatible with emphysema and/or fibrosis are noted and appear similar. An acute parenchymal infiltrate is not seen. Significant pleural fluid is not seen and there is no pneumothorax. Neuro stimulating device and a left Port-A-Cath are noted. There are several right rib fractures which appear new relative to the previous examination. IMPRESSION: Chronic changes. No acute findings seen. New right rib fractures relative to the previous exam
[2016-12-27 16:00] VITALS: BP 106/63
[2016-12-27 19:00] VITALS: BP 116/69
[2016-12-27] MEDS: glyBURIDE 5 MG TABLET PO SCH (20:11)
[2016-12-27] MEDS: traZODone 50 MG TABLET. PO SCH (20:11)
[2016-12-27] MEDS: levoFLOXacin 750 MG TABLET PO SCH (20:11)
[2016-12-27] MEDS: ENOXAPARIN 30 MG/0.3 ML DISP.SYRIN. SQ SCH (20:12)
[2016-12-27] MEDS ORDERED: VANCOMYCIN RANDOM LEVEL. MC ONE (21:00)
[2016-12-27] MEDS ORDERED: VANCOMYCIN 1 GM in IV NORMAL SALINE 250ML 250 ML IV ONE (22:00)
[2016-12-27] MEDS: VANCOMYCIN PER PHARMACY MC PRN (22:01)
[2016-12-27 23:50] VITALS: BP 100/62
--- NOTE | 2016-12-28 00:27 | PN ---
DATE: 12/27/2016 SUBJECTIVE: The patient with cellulitis to his legs, being treated for pancreatic cancer. The patient has multiple raised bullae as well as marked erythema to his legs, although says they are somewhat better, swelling is going down somewhat. The patient's white count is down from 14,000 down to 11,000. He is on double antibiotics. Hemoglobin actually went up to 8.6. PHYSICAL EXAMINATION: VITAL SIGNS: Blood pressure 100/60, respiratory 18, pulse 65, afebrile. GENERAL: The patient is alert and oriented x 3. Speech fluent, spontaneous, appropriate. LUNGS: Diminished, but clear. CARDIOVASCULAR: Regular sinus rhythm. ABDOMEN: Soft, distended, of course tender from his pancreatic cancer surgeries. LABORATORY DATA: The patient's, otherwise, blood sugars in the 140. The patient's albumin level 2.5, try to get him dietary consult, high protein diet if possible. Though renal function has been send while we will get dietary consult. IMPRESSION: In any case, impression bilateral cellulitis, history of pancreatic cancer, moderate to severe protein malnutrition and make further evaluation on him as indicated. PLAN: Continue on IV antibiotic therapy and make further assessment as indicated. MARCE WARREN MD DR: HERB/hernan JOB#: [id number] / [id number]
[2016-12-28 05:13] VITALS: BP 103/54
[2016-12-28 06:33] LABS: BASO % 0 % (0-3); EOS % 0 % (0-3); HEMATOCRIT 24.8 % (39.0-53.0); HEMOGLOBIN 8.7 g/dL (13.0-17.5); LYMPH # 0.4 x10^3/uL (1.0-4.8); LYMPH % 4 % (24-48); MEAN CORPUSCULAR HEMOGLOBIN 40 pg (25-35); MEAN CORPUSCULAR HGB CONC 35 g/dL (31-37); MEAN CORPUSCULAR VOLUME 113 fL (79-100); MONO # 0.3 x10^3/uL (0.0-1.1); MONO % 3 % (0-9); NEUT # 11.1 x10^3uL (1.8-7.7); NEUT % 93 % (31-73); PLATELET COUNT 159 x10^3/uL (140-400); RED CELL DISTRIBUTION WIDTH 21.3 % (11.5-14.5); WHITE BLOOD COUNT 11.9 x10^3/uL (4.0-11.0)
[2016-12-28 06:43] LABS: CALCIUM 7.5 mg/dL (8.5-10.1); GFR 20.9; POTASSIUM 5.4 mmol/L (3.5-5.1)
[2016-12-28] MEDS: FLUTICASONE 50MCG/NASAL SPRAY 16GM BOTTLE. NS SCH (09:00)
[2016-12-28] MEDS: CHOLESTYRAMINE/ASPARTAME 4 GM PACKET PO SCH (09:09)
[2016-12-28] MEDS: FENOFIBRATE NANOCRYSTALLIZED 145 MG TABLET PO SCH (09:10)
[2016-12-28] MEDS: GEMFIBROZIL 600 MG TABLET. PO SCH ×2 (09:11→20:26)
[2016-12-28] MEDS: ASPIRIN 81 MG TAB.CHEW PO SCH (09:12)
[2016-12-28] MEDS: CALCIUM CARB/VIT D3 500/200 TABLET PO SCH ×2 (09:12→18:27)
[2016-12-28] MEDS: TAMSULOSIN 0.4 MG CAP.ER.24H. PO SCH (09:12)
[2016-12-28] MEDS: MORPHINE ER 30 MG TABLET.ER PO SCH ×2 (09:12→20:27)
[2016-12-28] MEDS: MAGNESIUM CHLORIDE ER 64 MG TABLET.ER PO SCH (09:12)
[2016-12-28] MEDS: DOCUSATE SODIUM 100 MG CAPSULE PO SCH (09:13)
[2016-12-28] MEDS: DICYCLOMINE HCL 20 MG TABLET PO SCH ×4 (09:13→20:26)
[2016-12-28] MEDS: MOXIFLOXACIN 0.5% OPHTH SOLUTION 3ML BOTTLE. OU SCH ×3 (09:13→20:27)
[2016-12-28] MEDS: DEXAMETHASONE 4 MG TABLET PO SCH ×3 (09:13→20:26)
[2016-12-28] MEDS: FUROSEMIDE 40 MG/4 ML VIAL IVP SCH (09:14)
[2016-12-28] MEDS: PANTOPRAZOLE 40 MG TABLET. PO SCH (09:26)
[2016-12-28] MEDS: ALBUTEROL SULFATE 2.5 MG/3 ML NEBU. NEB SCH ×2 (10:11→22:21)
[2016-12-28 10:57] VITALS: BP 103/62
[2016-12-28] MEDS ORDERED: MAG HYDROX/AL HYDROX/SIMETH 30 ML ORAL.SUSP PO PRN (11:00)
[2016-12-28] MEDS: FERROUS SULFATE 325 MG TABLET. PO SCH (13:11)
[2016-12-28 14:45] VITALS: BP 100/51
[2016-12-28 18:48] VITALS: BP 126/53
[2016-12-28] MEDS: glyBURIDE 5 MG TABLET PO SCH (20:26)
[2016-12-28] MEDS: levoFLOXacin 750 MG TABLET PO SCH (20:26)
[2016-12-28] MEDS: ENOXAPARIN 30 MG/0.3 ML DISP.SYRIN. SQ SCH (20:27)
[2016-12-28] MEDS: traZODone 50 MG TABLET. PO SCH (20:27)
[2016-12-28] MEDS ORDERED: VANCOMYCIN RANDOM LEVEL. MC ONE (21:00)
[2016-12-28 22:21] VITALS: BP 110/57
[2016-12-28] MEDS: VANCOMYCIN PER PHARMACY MC PRN (22:22)
[2016-12-28] MEDS ORDERED: VANCOMYCIN 500 MG in IV NORMAL SALINE 100ML 100 ML IV ONE (22:30)
--- NOTE | 2016-12-28 23:10 | PN ---
DATE: SUBJECTIVE: A 66-year-old gentleman with history of pancreatic cancer, cellulitis to his lower legs. The patient otherwise seems to be resting fairly comfortably, making fairly good progress although his legs are still inflamed and irritated, may have to place a PICC line in and then make further evaluation on him, continue his outpatient IV antibiotic therapy as well. IMPRESSION: Cellulitis to the legs as well as history of pancreatic cancer. MARCE WARREN MD DR: HERB/nts JOB#: [id number] / [id number]
[2016-12-29 05:39] VITALS: BP 113/66
[2016-12-29 06:02] LABS: BASO % 0 % (0-3); EOS % 0 % (0-3); HEMATOCRIT 25.5 % (39.0-53.0); HEMOGLOBIN 8.9 g/dL (13.0-17.5); LYMPH # 0.4 x10^3/uL (1.0-4.8); LYMPH % 4 % (24-48); MEAN CORPUSCULAR HEMOGLOBIN 40 pg (25-35); MEAN CORPUSCULAR HGB CONC 35 g/dL (31-37); MEAN CORPUSCULAR VOLUME 114 fL (79-100); MONO # 0.4 x10^3/uL (0.0-1.1); MONO % 4 % (0-9); NEUT # 8.9 x10^3uL (1.8-7.7); NEUT % 92 % (31-73); PLATELET COUNT 159 x10^3/uL (140-400); RED BLOOD COUNT 2.25 x10^6/uL (4.30-5.70); RED CELL DISTRIBUTION WIDTH 21.2 % (11.5-14.5); WHITE BLOOD COUNT 9.7 x10^3/uL (4.0-11.0)
[2016-12-29 06:15] LABS: ALBUMIN 2.7 g/dL (3.4-5.0); CALCIUM 7.9 mg/dL (8.5-10.1); CREATININE 2.6 mg/dL (0.7-1.3); GFR 24.7; POTASSIUM 5.5 mmol/L (3.5-5.1); TOTAL BILIRUBIN 0.8 mg/dL (0.2-1.0); TOTAL PROTEIN 5.4 g/dL (6.4-8.2)
[2016-12-29] MEDS ORDERED: DEXTROSE 50% 25 GM / 50ML DISP.SYRIN. IV ONE (07:22)
[2016-12-29 07:42] LABS: % BANDS 1 % (0-9); % BASOS 0 % (0-3); % EOS 0 % (0-5); % LYMPHS 5 % (24-48); % MONOS 7 % (0-10); % SEGS 87 % (35-66); PLATELET CLUMP PRESENT; PLT ESTIMATE DECREASED (ADEQUATE)
[2016-12-29 07:43] LABS: ANISOCYTOSIS MOD; HELMET CELLS PRESENT; MICROCYTOSIS PRESENT; SCHISTOCYTES OCC; TEAR DROP CELLS PRESENT
[2016-12-29] MEDS: FUROSEMIDE 40 MG/4 ML VIAL IVP SCH (08:52)
[2016-12-29] MEDS: TAMSULOSIN 0.4 MG CAP.ER.24H. PO SCH (08:52)
[2016-12-29] MEDS: ASPIRIN 81 MG TAB.CHEW PO SCH (08:52)
[2016-12-29] MEDS: GEMFIBROZIL 600 MG TABLET. PO SCH (08:52)
[2016-12-29] MEDS: CHOLESTYRAMINE/ASPARTAME 4 GM PACKET PO SCH (08:52)
[2016-12-29] MEDS: PANTOPRAZOLE 40 MG TABLET. PO SCH (08:52)
[2016-12-29] MEDS: CALCIUM CARB/VIT D3 500/200 TABLET PO SCH (08:52)
[2016-12-29] MEDS: MAGNESIUM CHLORIDE ER 64 MG TABLET.ER PO SCH (08:52)
[2016-12-29] MEDS: FLUTICASONE 50MCG/NASAL SPRAY 16GM BOTTLE. NS SCH (08:52)
[2016-12-29] MEDS: MOXIFLOXACIN 0.5% OPHTH SOLUTION 3ML BOTTLE. OU SCH (08:52)
[2016-12-29] MEDS: FERROUS SULFATE 325 MG TABLET. PO SCH (08:52)
[2016-12-29] MEDS: DICYCLOMINE HCL 20 MG TABLET PO SCH (08:52)
[2016-12-29] MEDS: MORPHINE ER 30 MG TABLET.ER PO SCH (08:53)
[2016-12-29] MEDS: DEXAMETHASONE 4 MG TABLET PO SCH (08:53)
[2016-12-29] MEDS: DOCUSATE SODIUM 100 MG CAPSULE PO SCH (08:53)
[2016-12-29] MEDS: FENOFIBRATE NANOCRYSTALLIZED 145 MG TABLET PO SCH (08:53)
[2016-12-29 10:48] VITALS: BP 134/54
[2016-12-29] MEDS: ALBUTEROL SULFATE 2.5 MG/3 ML NEBU. NEB SCH (11:01)
[2016-12-29] MEDS ORDERED: MAG30ORA2 PO (11:43)
[2016-12-29] MEDS ORDERED: DOCU-109 PO (11:43)
[2016-12-29] MEDS ORDERED: FURO10VI42 IVP (11:43)
[2016-12-29] MEDS ORDERED: MORP30TA3 PO (11:43)
[2016-12-29] MEDS ORDERED: LEVO750T31 PO (11:43)
[2016-12-29 17:15] VITALS: BP 95/61
[2016-12-29] MEDS ORDERED: VANCOMYCIN RANDOM LEVEL. MC ONE (21:00)
[2016-12-30] MEDS ORDERED: BROM5DRO3 RIGHTEYE (14:39)
[2016-12-30] MEDS ORDERED: PRED5DRO16 RIGHTEYE (14:39)
== END 2016-12-29 11:59 | disposition swing bed (61) | DRG 602 ==
LOC: 1 SOUTH 16:39 → ICU 16:39
PROVIDERS: ADMIT Family Medicine; ATTEND Family Medicine
DX: L03.116 Cellulitis of left lower limb (principal); E43 Unspecified severe protein-calorie malnutrition; C25.2 Malignant neoplasm of tail of pancreas; K21.9 Gastro-esophageal reflux disease without esophagitis; E11.9 Type 2 diabetes mellitus without complications; E78.00 Pure hypercholesterolemia, unspecified; L03.115 Cellulitis of right lower limb; E78.5 Hyperlipidemia, unspecified; I10 Essential (primary) hypertension; J45.909 Unspecified asthma, uncomplicated; M19.90 Unspecified osteoarthritis, unspecified site; J44.9 Chronic obstructive pulmonary disease, unspecified; G47.33 Obstructive sleep apnea (adult) (pediatric); Z83.3 Family history of diabetes mellitus; Z82.49 Family history of ischemic heart disease and other diseases of the circulatory system; Z84.89 Family history of other specified conditions; Z80.8 Family history of malignant neoplasm of other organs or systems; Z68.22 Body mass index [BMI] 22.0-22.9, adult; Z90.49 Acquired absence of other specified parts of digestive tract
CPT/HCPCS: 36415; 71010; 74176; 78582; 80048; 80053; 80202; 81001; 82550; 82947; 83605; 83880; 84484; 85007; 85025; 85379; 85651; 93970; 94640; 96374; A9540; A9558; J1650; J1940; J3370; J7050; J7613; J8540

== ENCOUNTER 2016-12-29 12:33 | Inpatient (IN) | payer MEDICARE, OTHER ==
[~2016-12-29] VITALS: Ht 177.8 cm; Wt 67.1 kg
[~2016-12-29 12:33] MED LIST changes: +DOCU-109 PO; +FURO10VI42 IVP; +LEVO750T31 PO; +MAG30ORA2 PO; +MOXI3DRO2 EACHEYE
[2016-12-29] MEDS ORDERED: ACETAMINOPHEN 325 MG TABLET PO SCH (12:45)
[2016-12-29] MEDS ORDERED: MAG HYDROX/AL HYDROX/SIMETH 30 ML ORAL.SUSP PO PRN (12:45)
[2016-12-29] MEDS: DICYCLOMINE HCL 20 MG TABLET PO SCH ×3 (13:00→21:10)
[2016-12-29 13:02] VITALS: BP 134/54
[2016-12-29] MEDS ORDERED: ONDANSETRON ODT 4 MG TAB.RAPDIS PO PRN (13:15)
[2016-12-29] MEDS ORDERED: ALBUTEROL SULFATE 2.5 MG/3 ML NEBU. NEB PRN (13:30)
[2016-12-29] MEDS: DEXAMETHASONE 4 MG TABLET PO SCH ×2 (13:37→21:09)
[2016-12-29] MEDS: MOXIFLOXACIN 0.5% OPHTH SOLUTION 3ML BOTTLE. OU SCH ×2 (13:37→21:12)
[2016-12-29] MEDS: CALCIUM CARB/VIT D3 500/200 TABLET PO SCH (17:45)
[2016-12-29 19:14] VITALS: BP 108/52
[2016-12-29] MEDS ORDERED: VANCOMYCIN RANDOM LEVEL. MC ONE (21:00)
[2016-12-29] MEDS: GEMFIBROZIL 600 MG TABLET. PO SCH (21:09)
[2016-12-29] MEDS: traZODone 50 MG TABLET. PO SCH (21:09)
[2016-12-29] MEDS: glyBURIDE 5 MG TABLET PO SCH (21:10)
[2016-12-29] MEDS: MORPHINE ER 30 MG TABLET.ER PO SCH (21:11)
[2016-12-29] MEDS: levoFLOXacin 750 MG TABLET PO SCH (21:11)
[2016-12-29] MEDS: ALBUTEROL SULFATE 2.5 MG/3 ML NEBU. NEB SCH (21:39)
[2016-12-29] MEDS: VANCOMYCIN 1 GM in IV NORMAL SALINE 250ML 250 ML IV SCH (22:55)
[2016-12-29] MEDS: VANCOMYCIN PER PHARMACY MC PRN (23:15)
[2016-12-30 05:27] VITALS: BP 124/62
[2016-12-30] MEDS: CHOLESTYRAMINE/ASPARTAME 4 GM PACKET PO SCH (08:28)
[2016-12-30] MEDS: FUROSEMIDE 20 MG/2 ML VIAL IVP SCH (08:29)
[2016-12-30] MEDS: GEMFIBROZIL 600 MG TABLET. PO SCH ×2 (08:30→21:07)
[2016-12-30] MEDS: TAMSULOSIN 0.4 MG CAP.ER.24H. PO SCH (08:30)
[2016-12-30] MEDS: CALCIUM CARB/VIT D3 500/200 TABLET PO SCH ×2 (08:30→17:36)
[2016-12-30] MEDS: DOCUSATE SODIUM 100 MG CAPSULE PO SCH (08:31)
[2016-12-30] MEDS: MAGNESIUM CHLORIDE ER 64 MG TABLET.ER PO SCH (08:31)
[2016-12-30] MEDS: DICYCLOMINE HCL 20 MG TABLET PO SCH ×4 (08:31→21:07)
[2016-12-30] MEDS: MORPHINE ER 30 MG TABLET.ER PO SCH ×2 (08:31→21:07)
[2016-12-30] MEDS: PANTOPRAZOLE 40 MG TABLET. PO SCH (08:31)
[2016-12-30] MEDS: FENOFIBRATE NANOCRYSTALLIZED 145 MG TABLET PO SCH (08:31)
[2016-12-30] MEDS: ASPIRIN 81 MG TAB.CHEW PO SCH (08:31)
[2016-12-30] MEDS: FLUTICASONE 50MCG/NASAL SPRAY 16GM BOTTLE. NS SCH (08:36)
[2016-12-30] MEDS: DEXAMETHASONE 4 MG TABLET PO SCH ×3 (08:36→21:07)
[2016-12-30] MEDS: MOXIFLOXACIN 0.5% OPHTH SOLUTION 3ML BOTTLE. OU SCH (08:42)
[2016-12-30] MEDS: ALBUTEROL SULFATE 2.5 MG/3 ML NEBU. NEB SCH ×2 (09:45→20:00)
[2016-12-30 10:54] VITALS: BP 121/63
[2016-12-30] MEDS: FERROUS SULFATE 325 MG TABLET. PO SCH (11:48)
[2016-12-30] MEDS ORDERED: PRED5DRO16 RIGHTEYE (14:39)
[2016-12-30] MEDS ORDERED: BROM5DRO3 RIGHTEYE (14:39)
[2016-12-30] MEDS: MOXIFLOXACIN 0.5% OD SCH ×2 (15:33→21:00)
[2016-12-30] MEDS: PREDNISOLONE 1% OD SCH ×2 (15:34→21:00)
[2016-12-30 19:41] VITALS: BP 119/68
[2016-12-30] MEDS: VANCOMYCIN 1 GM in IV NORMAL SALINE 250ML 250 ML IV SCH (21:00)
[2016-12-30] MEDS: traZODone 50 MG TABLET. PO SCH (21:07)
[2016-12-30] MEDS: MORPHINE IR 15 MG TABLET PO PRN (21:07)
[2016-12-30] MEDS: glyBURIDE 5 MG TABLET PO SCH (21:07)
[2016-12-30 21:34] LABS: VANC TR 17.7 mcg/mL (10.0-20.0)
[2016-12-30 23:22] VITALS: BP 122/78
[2016-12-31 06:16] VITALS: BP 96/40
[2016-12-31] MEDS: PANTOPRAZOLE 40 MG TABLET. PO SCH (08:17)
[2016-12-31] MEDS: ASPIRIN 81 MG TAB.CHEW PO SCH (08:17)
[2016-12-31] MEDS: CALCIUM CARB/VIT D3 500/200 TABLET PO SCH ×2 (08:17→16:40)
[2016-12-31] MEDS: TAMSULOSIN 0.4 MG CAP.ER.24H. PO SCH (08:17)
[2016-12-31] MEDS: MOXIFLOXACIN 0.5% OD SCH ×3 (09:00→21:00)
[2016-12-31] MEDS: BROMFENAC 0.075% RIGHTEYE SCH (09:00)
[2016-12-31] MEDS: PREDNISOLONE 1% OD SCH ×3 (09:00→21:00)
[2016-12-31] MEDS: DEXAMETHASONE 4 MG TABLET PO SCH ×3 (09:26→21:25)
[2016-12-31] MEDS: DOCUSATE SODIUM 100 MG CAPSULE PO SCH (09:27)
[2016-12-31] MEDS: FENOFIBRATE NANOCRYSTALLIZED 145 MG TABLET PO SCH (09:28)
[2016-12-31] MEDS: MAGNESIUM CHLORIDE ER 64 MG TABLET.ER PO SCH (09:28)
[2016-12-31] MEDS: GEMFIBROZIL 600 MG TABLET. PO SCH ×2 (09:28→21:24)
[2016-12-31] MEDS: MORPHINE ER 30 MG TABLET.ER PO SCH ×2 (09:28→21:25)
[2016-12-31] MEDS: DICYCLOMINE HCL 20 MG TABLET PO SCH ×4 (09:29→21:24)
[2016-12-31] MEDS: FLUTICASONE 50MCG/NASAL SPRAY 16GM BOTTLE. NS SCH (09:29)
[2016-12-31] MEDS: FUROSEMIDE 20 MG/2 ML VIAL IVP SCH (09:29)
[2016-12-31] MEDS: CHOLESTYRAMINE/ASPARTAME 4 GM PACKET PO SCH (09:30)
[2016-12-31] MEDS: FERROUS SULFATE 325 MG TABLET. PO SCH (11:50)
[2016-12-31] MEDS: ALBUTEROL SULFATE 2.5 MG/3 ML NEBU. NEB SCH ×2 (11:53→20:39)
[2016-12-31 20:19] VITALS: BP 95/60
[2016-12-31 20:42] LABS: CALCIUM 7.9 mg/dL (8.5-10.1); CREATININE 2.5 mg/dL (0.7-1.3); GFR 25.8; POTASSIUM 4.9 mmol/L (3.5-5.1)
[2016-12-31 20:44] LABS: VANC TR 18.4 mcg/mL (10.0-20.0)
[2016-12-31] MEDS: glyBURIDE 5 MG TABLET PO SCH (21:24)
[2016-12-31] MEDS: VANCOMYCIN 1 GM in IV NORMAL SALINE 250ML 250 ML IV SCH (21:24)
[2016-12-31] MEDS: levoFLOXacin 750 MG TABLET PO SCH (21:24)
[2016-12-31] MEDS: traZODone 50 MG TABLET. PO SCH (21:25)
[2016-12-31] MEDS: VANCOMYCIN PER PHARMACY MC PRN (23:00)
[2017-01-01 05:44] VITALS: BP 115/67
[2017-01-01] MEDS: PANTOPRAZOLE 40 MG TABLET. PO SCH (07:38)
[2017-01-01] MEDS: ASPIRIN 81 MG TAB.CHEW PO SCH (07:39)
[2017-01-01] MEDS: TAMSULOSIN 0.4 MG CAP.ER.24H. PO SCH (07:39)
[2017-01-01] MEDS: CALCIUM CARB/VIT D3 500/200 TABLET PO SCH ×2 (07:39→16:54)
[2017-01-01] MEDS: PREDNISOLONE 1% OD SCH ×3 (09:00→21:40)
[2017-01-01] MEDS: BROMFENAC 0.075% RIGHTEYE SCH (09:00)
[2017-01-01] MEDS: MOXIFLOXACIN 0.5% OD SCH ×3 (09:00→21:40)
[2017-01-01] MEDS: FENOFIBRATE NANOCRYSTALLIZED 145 MG TABLET PO SCH (09:21)
[2017-01-01] MEDS: CHOLESTYRAMINE/ASPARTAME 4 GM PACKET PO SCH (09:22)
[2017-01-01] MEDS: DOCUSATE SODIUM 100 MG CAPSULE PO SCH (09:22)
[2017-01-01] MEDS: MORPHINE ER 30 MG TABLET.ER PO SCH ×2 (09:22→21:36)
[2017-01-01] MEDS: DEXAMETHASONE 4 MG TABLET PO SCH ×3 (09:22→21:40)
[2017-01-01] MEDS: FLUTICASONE 50MCG/NASAL SPRAY 16GM BOTTLE. NS SCH (09:23)
[2017-01-01] MEDS: DICYCLOMINE HCL 20 MG TABLET PO SCH ×4 (09:23→21:36)
[2017-01-01] MEDS: MAGNESIUM CHLORIDE ER 64 MG TABLET.ER PO SCH (09:23)
[2017-01-01] MEDS: CYCLOBENZAPRINE 10 MG TABLET. PO PRN (09:23)
[2017-01-01] MEDS: GEMFIBROZIL 600 MG TABLET. PO SCH ×2 (09:23→21:40)
[2017-01-01] MEDS: FUROSEMIDE 20 MG/2 ML VIAL IVP SCH (09:24)
[2017-01-01] MEDS: FERROUS SULFATE 325 MG TABLET. PO SCH (11:32)
[2017-01-01] MEDS: ALBUTEROL SULFATE 2.5 MG/3 ML NEBU. NEB SCH ×2 (11:38→20:35)
[2017-01-01 11:40] VITALS: BP 113/53
[2017-01-01 15:44] VITALS: BP 121/67
[2017-01-01] MEDS ORDERED: LACTOBACILLUS ACIDOPH & BULGAR 1 TABLET. PO SCH (21:00)
[2017-01-01] MEDS: VANCOMYCIN 1 GM in IV NORMAL SALINE 250ML 250 ML IV SCH (21:36)
[2017-01-01] MEDS: levoFLOXacin 750 MG TABLET PO SCH (21:37)
[2017-01-01] MEDS: glyBURIDE 5 MG TABLET PO SCH (21:37)
[2017-01-01] MEDS: traZODone 50 MG TABLET. PO SCH (21:37)
[2017-01-02] MEDS: FENOFIBRATE NANOCRYSTALLIZED 145 MG TABLET PO SCH (08:37)
[2017-01-02] MEDS: DOCUSATE SODIUM 100 MG CAPSULE PO SCH (08:37)
[2017-01-02] MEDS: CALCIUM CARB/VIT D3 500/200 TABLET PO SCH ×2 (08:37→17:21)
[2017-01-02] MEDS: ASPIRIN 81 MG TAB.CHEW PO SCH (08:37)
[2017-01-02] MEDS: DEXAMETHASONE 4 MG TABLET PO SCH ×3 (08:37→21:33)
[2017-01-02] MEDS: MAGNESIUM CHLORIDE ER 64 MG TABLET.ER PO SCH (08:37)
[2017-01-02] MEDS: MORPHINE ER 30 MG TABLET.ER PO SCH ×2 (08:37→21:34)
[2017-01-02] MEDS: DICYCLOMINE HCL 20 MG TABLET PO SCH ×4 (08:37→21:33)
[2017-01-02] MEDS: CHOLESTYRAMINE/ASPARTAME 4 GM PACKET PO SCH (08:38)
[2017-01-02] MEDS: GEMFIBROZIL 600 MG TABLET. PO SCH ×2 (08:38→21:33)
[2017-01-02] MEDS: TAMSULOSIN 0.4 MG CAP.ER.24H. PO SCH (08:38)
[2017-01-02] MEDS: PANTOPRAZOLE 40 MG TABLET. PO SCH (08:38)
[2017-01-02] MEDS: FUROSEMIDE 20 MG/2 ML VIAL IVP SCH (08:39)
[2017-01-02] MEDS: FLUTICASONE 50MCG/NASAL SPRAY 16GM BOTTLE. NS SCH (08:39)
[2017-01-02] MEDS: MOXIFLOXACIN 0.5% OD SCH ×3 (08:43→21:32)
[2017-01-02] MEDS: BROMFENAC 0.075% RIGHTEYE SCH (08:43)
[2017-01-02] MEDS: PREDNISOLONE 1% OD SCH ×3 (08:46→21:32)
[2017-01-02] MEDS ORDERED: BETAMETHASONE DIPROP 0.05% TP SCH (09:00)
[2017-01-02 09:07] VITALS: BP 118/64
[2017-01-02] MEDS ORDERED: PIP/TAZO PER PHARMACY MC PRN (09:30)
[2017-01-02] MEDS: ALBUTEROL SULFATE 2.5 MG/3 ML NEBU. NEB SCH ×2 (09:47→19:57)
[2017-01-02 10:32] LABS: BASO % 0 % (0-3); EOS % 0 % (0-3); HEMATOCRIT 29.8 % (39.0-53.0); HEMOGLOBIN 10.3 g/dL (13.0-17.5); LYMPH # 0.4 x10^3/uL (1.0-4.8); LYMPH % 3 % (24-48); MEAN CORPUSCULAR HEMOGLOBIN 39 pg (25-35); MEAN CORPUSCULAR HGB CONC 35 g/dL (31-37); MEAN CORPUSCULAR VOLUME 114 fL (79-100); MONO # 1.2 x10^3/uL (0.0-1.1); MONO % 8 % (0-9); NEUT # 13.2 x10^3uL (1.8-7.7); NEUT % 89 % (31-73); PLATELET COUNT 201 x10^3/uL (140-400); RED BLOOD COUNT 2.61 x10^6/uL (4.30-5.70); RED CELL DISTRIBUTION WIDTH 23.2 % (11.5-14.5); WHITE BLOOD COUNT 14.8 x10^3/uL (4.0-11.0)
[2017-01-02 10:36] LABS: CALCIUM 8.1 mg/dL (8.5-10.1); CREATININE 2.1 mg/dL (0.7-1.3); GFR 31.6; POTASSIUM 4.1 mmol/L (3.5-5.1)
[2017-01-02] MEDS: FERROUS SULFATE 325 MG TABLET. PO SCH (11:34)
[2017-01-02] MEDS: PIPERACILLIN/TAZOBACTAM 3.375 GM in IV NORMAL SALINE 50ML 50 ML IV SCH ×3 (11:35→22:41)
[2017-01-02 12:40] LABS: % BANDS 2 % (0-9); % LYMPHS 4 % (24-48); % MONOS 3 % (0-10); % SEGS 91 % (35-66)
[2017-01-02 12:43] LABS: ANISOCYTOSIS MOD; OVALOCYTES OCC; PLT ESTIMATE ADEQUATE (ADEQUATE); SCHISTOCYTES MOD; TEAR DROP CELLS MOD
[2017-01-02 12:44] LABS: TOXIC GRANULATION SLIGHT
[2017-01-02 19:45] VITALS: BP 146/73
--- NOTE | 2017-01-02 21:32 | PN ---
DATE: 01/02/2017 SUBJECTIVE: The patient is on skilled unit. A 66-year-old gentleman with bilateral cellulitis, resting fairly comfortably and making fairly good progress overall. His legs are still somewhat inflamed; however, he appears making some progress. We will switch him over to [employer] suggestion of Pharmacy. Blood pressure 120/60, respiratory rate 20, pulse 80, afebrile. Legs have markedly improved and will continue to be monitored accordingly. MARCE WARREN MD DR: HERB/hernan JOB#: [id number] / [id number]
[2017-01-02] MEDS: traZODone 50 MG TABLET. PO SCH (21:33)
[2017-01-02] MEDS: glyBURIDE 5 MG TABLET PO SCH (21:33)
[2017-01-02] MEDS: MORPHINE IR 15 MG TABLET PO PRN (21:41)
[2017-01-03 05:07] VITALS: BP 125/53
[2017-01-03] MEDS: PIPERACILLIN/TAZOBACTAM 3.375 GM in IV NORMAL SALINE 50ML 50 ML IV SCH ×4 (05:12→23:10)
[2017-01-03] MEDS: PANTOPRAZOLE 40 MG TABLET. PO SCH (06:44)
[2017-01-03] MEDS: ALBUTEROL SULFATE 2.5 MG/3 ML NEBU. NEB SCH ×2 (09:45→20:31)
[2017-01-03] MEDS: MAGNESIUM CHLORIDE ER 64 MG TABLET.ER PO SCH (10:09)
[2017-01-03] MEDS: DOCUSATE SODIUM 100 MG CAPSULE PO SCH (10:09)
[2017-01-03] MEDS: GEMFIBROZIL 600 MG TABLET. PO SCH ×2 (10:10→21:11)
[2017-01-03] MEDS: MORPHINE ER 30 MG TABLET.ER PO SCH ×2 (10:10→21:10)
[2017-01-03] MEDS: DICYCLOMINE HCL 20 MG TABLET PO SCH ×4 (10:10→21:10)
[2017-01-03] MEDS: FENOFIBRATE NANOCRYSTALLIZED 145 MG TABLET PO SCH (10:10)
[2017-01-03] MEDS: TAMSULOSIN 0.4 MG CAP.ER.24H. PO SCH (10:11)
[2017-01-03] MEDS: DEXAMETHASONE 4 MG TABLET PO SCH ×3 (10:11→21:10)
[2017-01-03] MEDS: CALCIUM CARB/VIT D3 500/200 TABLET PO SCH ×2 (10:11→17:30)
[2017-01-03] MEDS: ASPIRIN 81 MG TAB.CHEW PO SCH (10:11)
[2017-01-03] MEDS: CHOLESTYRAMINE/ASPARTAME 4 GM PACKET PO SCH (10:12)
[2017-01-03] MEDS: FERROUS SULFATE 325 MG TABLET. PO SCH (10:12)
[2017-01-03] MEDS: FUROSEMIDE 20 MG/2 ML VIAL IVP SCH (10:17)
[2017-01-03] MEDS: FLUTICASONE 50MCG/NASAL SPRAY 16GM BOTTLE. NS SCH (10:24)
[2017-01-03] MEDS: MOXIFLOXACIN 0.5% OD SCH ×3 (10:25→21:10)
[2017-01-03] MEDS: PREDNISOLONE 1% OD SCH ×3 (10:25→21:09)
[2017-01-03] MEDS: BROMFENAC 0.075% RIGHTEYE SCH (10:26)
[2017-01-03 14:38] VITALS: BP 123/72
[2017-01-03] MEDS: MORPHINE IR 15 MG TABLET PO PRN (18:50)
[2017-01-03 19:35] VITALS: BP 133/89
[2017-01-03] MEDS: traZODone 50 MG TABLET. PO SCH (21:10)
[2017-01-03] MEDS: glyBURIDE 5 MG TABLET PO SCH (21:11)
[2017-01-04] MEDS: PIPERACILLIN/TAZOBACTAM 3.375 GM in IV NORMAL SALINE 50ML 50 ML IV SCH ×2 (05:18→12:26)
[2017-01-04 06:00] VITALS: BP 122/69
[2017-01-04] MEDS ORDERED: FUROSEMIDE 40 MG TABLET PO SCH (09:00)
[2017-01-04] MEDS: FLUTICASONE 50MCG/NASAL SPRAY 16GM BOTTLE. NS SCH (09:34)
[2017-01-04] MEDS: PREDNISOLONE 1% OD SCH ×2 (09:34→13:59)
[2017-01-04] MEDS: MOXIFLOXACIN 0.5% OD SCH ×2 (09:38→13:58)
[2017-01-04] MEDS: PANTOPRAZOLE 40 MG TABLET. PO SCH (09:43)
[2017-01-04] MEDS: CALCIUM CARB/VIT D3 500/200 TABLET PO SCH (09:43)
[2017-01-04] MEDS: GEMFIBROZIL 600 MG TABLET. PO SCH (09:43)
[2017-01-04] MEDS: MAGNESIUM CHLORIDE ER 64 MG TABLET.ER PO SCH (09:43)
[2017-01-04] MEDS: FENOFIBRATE NANOCRYSTALLIZED 145 MG TABLET PO SCH (09:43)
[2017-01-04] MEDS: TAMSULOSIN 0.4 MG CAP.ER.24H. PO SCH (09:43)
[2017-01-04] MEDS: DOCUSATE SODIUM 100 MG CAPSULE PO SCH (09:43)
[2017-01-04] MEDS: CHOLESTYRAMINE/ASPARTAME 4 GM PACKET PO SCH (09:44)
[2017-01-04] MEDS: ASPIRIN 81 MG TAB.CHEW PO SCH (09:44)
[2017-01-04] MEDS: DEXAMETHASONE 4 MG TABLET PO SCH ×2 (09:44→14:08)
[2017-01-04] MEDS: MORPHINE ER 30 MG TABLET.ER PO SCH (09:44)
[2017-01-04] MEDS: DICYCLOMINE HCL 20 MG TABLET PO SCH ×2 (09:44→13:57)
[2017-01-04] MEDS: CYCLOBENZAPRINE 10 MG TABLET. PO PRN (09:48)
[2017-01-04] MEDS: ALBUTEROL SULFATE 2.5 MG/3 ML NEBU. NEB SCH (10:53)
[2017-01-04] MEDS: FERROUS SULFATE 325 MG TABLET. PO SCH (12:26)
[2017-01-04] MEDS: MORPHINE IR 15 MG TABLET PO PRN (12:35)
[2017-01-04] MEDS ORDERED: FURO40TA4 PO (13:23)
[2017-01-04] MEDS ORDERED: HEPARIN PF 500 UNIT/5 ML DISP.SYRIN. IV ONE (14:05)
[2017-01-04 15:07] VITALS: BP 102/55
[2017-01-04] MEDS ORDERED: LACTOBACILLUS ACIDOPH & BULGAR 1 TABLET. PO SCH (21:00)
--- NOTE | 2017-01-18 22:25 | DS ---
DATE OF DISCHARGE: 01/04/2017 LOCATION: Skilled unit. The patient came in with bilateral cellulitis, has a history of pancreatic cancer, has been undergoing chemotherapy, was immunosuppressed. The patient was switched over to Zosyn and made good improvement with Zosyn. He received physical and occupational therapy and this helped him with that situation. In any case, the patient made good progress and he was discharged to home. IMPRESSION: Therefore, bilateral cellulitis, pancreatic cancer, immunocompromised patient secondary to chemotherapy. He will be regular diet, decreased activity. See [facility]. MARCE WARREN MD DR: HERB/hernan JOB#: [id number] / [id number]
== END 2017-01-04 16:40 | disposition home health service (06) | DRG 603 ==
LOC: 1 SOUTH 12:33
PROVIDERS: ADMIT Family Medicine; ATTEND Family Medicine
DX: L03.116 Cellulitis of left lower limb (principal); C25.2 Malignant neoplasm of tail of pancreas; L03.115 Cellulitis of right lower limb
CPT/HCPCS: 36415; 80048; 80202; 82947; 85007; 85025; 94640; J2543; J3370; J7050; J7613; J8540; 97110; 97116; 97530; 97535

== ENCOUNTER 2017-01-25 18:02 | Inpatient (IN) | payer MEDICARE, OTHER ==
[~2017-01-25] VITALS: Ht 177.8 cm; Wt 69.5 kg
[~2017-01-25 18:02] MED LIST changes: +BROM5DRO3 RIGHTEYE; +FURO40TA4 PO; +PRED5DRO16 RIGHTEYE
[2017-01-25 19:43] VITALS: BP 132/81
[2017-01-25] MEDS ORDERED: MAG HYDROX/AL HYDROX/SIMETH 30 ML ORAL.SUSP PO PRN (21:00)
[2017-01-25] MEDS ORDERED: CYCLOBENZAPRINE 10 MG TABLET. PO PRN (21:00)
[2017-01-25] MEDS: traZODone 50 MG TABLET. PO SCH (21:00)
[2017-01-25] MEDS: MOXIFLOXACIN 0.5% OPHTH SOLUTION 3ML BOTTLE. OU SCH (21:00)
[2017-01-25] MEDS ORDERED: ACETAMINOPHEN 325 MG TABLET PO PRN (21:00)
[2017-01-25] MEDS ORDERED: ALBUTEROL SULFATE 8GM INHALER. IH SCH (21:00)
[2017-01-25] MEDS: DICYCLOMINE HCL 20 MG TABLET PO SCH (21:00)
[2017-01-25] MEDS ORDERED: prednisoLONE ACETATE 1% OPHTH SUSPENSION 5ML BOTTLE. OU SCH (21:00)
[2017-01-25] MEDS: ALBUTEROL SULFATE 2.5 MG/3 ML NEBU. NEB SCH (21:05)
[2017-01-25 21:34] LABS: ALBUMIN 2.3 g/dL (3.4-5.0); ALBUMIN/GLOBULIN RATIO 0.9 (1.0-1.7); BASO % 0 % (0-3); CALCIUM 7.5 mg/dL (8.5-10.1); CREATININE 2.2 mg/dL (0.7-1.3); EOS % 1 % (0-3); GFR 29.9; HEMATOCRIT 23.3 % (39.0-53.0); HEMOGLOBIN 7.9 g/dL (13.0-17.5); LYMPH # 0.7 x10^3/uL (1.0-4.8); LYMPH % 9 % (24-48); MEAN CORPUSCULAR HEMOGLOBIN 38 pg (25-35); MEAN CORPUSCULAR HGB CONC 34 g/dL (31-37); MEAN CORPUSCULAR VOLUME 112 fL (79-100); MONO # 0.8 x10^3/uL (0.0-1.1); MONO % 11 % (0-9); NEUT # 5.7 x10^3uL (1.8-7.7); NEUT % 79 % (31-73); PLATELET COUNT 154 x10^3/uL (140-400); POTASSIUM 5.7 mmol/L (3.5-5.1); RED BLOOD COUNT 2.07 x10^6/uL (4.30-5.70); RED CELL DISTRIBUTION WIDTH 19.1 % (11.5-14.5); TOTAL BILIRUBIN 1.2 mg/dL (0.2-1.0); TOTAL PROTEIN 4.9 g/dL (6.4-8.2); WHITE BLOOD COUNT 7.2 x10^3/uL (4.0-11.0)
[2017-01-25] MEDS ORDERED: ONDANSETRON ODT 4 MG TAB.RAPDIS PO PRN (21:45)
[2017-01-25 22:21] LABS: % BANDS 1 % (0-9); % LYMPHS 10 % (24-48); % MONOS 5 % (0-10); % SEGS 82 % (35-66)
[2017-01-25 22:25] LABS: ANISOCYTOSIS SLIGHT
[2017-01-25 22:27] LABS: PLT ESTIMATE ADEQUATE (ADEQUATE)
[2017-01-25 23:17] VITALS: BP 109/61
[2017-01-25] MEDS: ENOXAPARIN 30 MG/0.3 ML DISP.SYRIN. SQ SCH (23:44)
[2017-01-25] MEDS: FUROSEMIDE 20 MG/2 ML VIAL IVP SCH (23:44)
[2017-01-26] MEDS: MORPHINE IR 15 MG TABLET PO PRN ×3 (00:07→07:30)
[2017-01-26 05:07] VITALS: BP 107/64
[2017-01-26 06:59] LABS: CALCIUM 7.3 mg/dL (8.5-10.1); GFR 33.4; POTASSIUM 4.9 mmol/L (3.5-5.1)
[2017-01-26 07:03] LABS: BASO % 0 % (0-3); EOS % 1 % (0-3); HEMATOCRIT 23.6 % (39.0-53.0); HEMOGLOBIN 8.1 g/dL (13.0-17.5); LYMPH # 1.1 x10^3/uL (1.0-4.8); LYMPH % 17 % (24-48); MEAN CORPUSCULAR HEMOGLOBIN 38 pg (25-35); MEAN CORPUSCULAR HGB CONC 34 g/dL (31-37); MEAN CORPUSCULAR VOLUME 112 fL (79-100); MONO # 0.7 x10^3/uL (0.0-1.1); MONO % 12 % (0-9); NEUT # 4.6 x10^3uL (1.8-7.7); NEUT % 71 % (31-73); PLATELET COUNT 155 x10^3/uL (140-400); RED CELL DISTRIBUTION WIDTH 19.2 % (11.5-14.5); WHITE BLOOD COUNT 6.4 x10^3/uL (4.0-11.0)
[2017-01-26 07:25] LABS: BACTERIA,URINE 0 /HPF (0-FEW); BILIRUBIN,URINE NEG (NEG); CLARITY,URINE CLEAR; COLOR,URINE YELLOW; GLUCOSE,URINE NEG (NEG); HYALINE CASTS, URINE FEW /HPF; NITRITE,URINE NEG (NEG); SQUAMOUS EPITHELIAL CELL,UR OCC /LPF; UROBILINOGEN,URINE 0.2 mg/dL (0.2 mg/dL)
--- NOTE | 2017-01-26 08:07 | RAD ---
AP chest radiograph 01/25/2017 Clinical indication: Congestive heart failure. Comparison: Chest 12/27/2016 Findings: Left IJ central venous catheter in similar position. Partial visualization of thoracic spinal stimulator leads projected over the mid thoracic spine. Cardiac and mediastinal silhouettes are unremarkable. There is hyperexpansion of both lungs. Air airspace opacities in the right lung base. No pleural effusion or pneumothorax. Impression: 1. Patchy opacities in the right lung base which may represent aspiration, atelectasis or infection. 2. Hyperexpansion of both lungs suggestive of air trapping. 3. No evidence of CHF.
--- NOTE | 2017-01-26 08:13 | RAD ---
CT head without contrast 01/25/2017 Clinical indication: Fall with trauma to the right head Comparison: CT head 06/06/2016 Technique: Multiple CT images of the head were obtained without contrast according to standard protocol. RS Compliance Statement: One or more of the following individualized dose reduction techniques were utilized for this examination: 1. Automated exposure control 2. Adjustment of the mA and/or kV according to patient size 3. Use of iterative reconstruction technique Findings: There is parallel orientation of the lateral ventricles with dilatation of the trigones and occipital horns compatible with agenesis of the corpus callosum. No acute intracranial hemorrhage or extra-axial fluid collection. No midline shift. The quintero-white matter interfaces are maintained. There is mild cerebellar tonsillar ectopia. The basal cisterns are patent. There is a small coastal retention cyst in the right frontal sinus. Impression: 1. No acute intracranial hemorrhage. 2. Agenesis of the corpus callosum. 3. Persistent mild cerebellar tonsillar ectopia.
[2017-01-26] MEDS: ASPIRIN 81 MG TAB.CHEW PO SCH (08:28)
[2017-01-26] MEDS: DOCUSATE SODIUM 100 MG CAPSULE PO SCH (08:29)
[2017-01-26] MEDS: FENOFIBRATE NANOCRYSTALLIZED 145 MG TABLET PO SCH (08:29)
[2017-01-26] MEDS: MAGNESIUM CHLORIDE ER 64 MG TABLET.ER PO SCH (08:30)
[2017-01-26] MEDS: PANTOPRAZOLE 40 MG TABLET. PO SCH (08:30)
[2017-01-26] MEDS: DICYCLOMINE HCL 20 MG TABLET PO SCH ×4 (08:30→20:12)
[2017-01-26] MEDS: CHOLESTYRAMINE/ASPARTAME 4 GM PACKET PO SCH (08:31)
[2017-01-26] MEDS: KETOROLAC TROMETHAMINE 0.5% OPHTH SOLUTION 3ML BOTTLE. OD SCH ×4 (08:32→20:13)
[2017-01-26] MEDS: GEMFIBROZIL 600 MG TABLET. PO SCH ×2 (08:32→20:11)
[2017-01-26] MEDS: FLUTICASONE 50MCG/NASAL SPRAY 16GM BOTTLE. NS SCH (08:32)
[2017-01-26] MEDS: TAMSULOSIN 0.4 MG CAP.ER.24H. PO SCH (08:33)
[2017-01-26] MEDS: FUROSEMIDE 20 MG/2 ML VIAL IVP SCH ×2 (08:33→13:52)
[2017-01-26] MEDS: MOXIFLOXACIN 0.5% OPHTH SOLUTION 3ML BOTTLE. OU SCH ×3 (09:00→20:11)
[2017-01-26] MEDS: prednisoLONE ACETATE 1% OPHTH SUSPENSION 5ML BOTTLE. OD SCH ×3 (09:00→20:12)
[2017-01-26] MEDS ORDERED: DEXAMETHASONE 4 MG TABLET PO SCH (09:00)
[2017-01-26] MEDS: ALBUTEROL SULFATE 2.5 MG/3 ML NEBU. NEB SCH ×2 (09:13→22:38)
[2017-01-26] MEDS ORDERED: FUROSEMIDE 20 MG/2 ML VIAL IVP SCH (10:00)
[2017-01-26] MEDS ORDERED: VANCOMYCIN 1.5 GM in IV NORMAL SALINE 500ML 500 ML IV ONE (10:00)
[2017-01-26] MEDS: DEXAMETHASONE 0.5 MG TABLET PO SCH ×3 (10:17→20:12)
[2017-01-26] MEDS: FERROUS SULFATE 325 MG TABLET. PO SCH (10:17)
[2017-01-26 11:05] VITALS: BP 105/67
[2017-01-26] MEDS: VANCOMYCIN PER PHARMACY MC PRN (11:11)
[2017-01-26] MEDS: LACTOBACILLUS RHAMNOSUS GG 1 CAPSULE. PO SCH ×2 (13:52→20:11)
--- NOTE | 2017-01-26 14:16 | HP ---
ADMIT DATE: 01/25/2017 HISTORY OF PRESENT ILLNESS: A 66-year-old male came in from [facility]. The patient was noted to have marked swelling in his legs, increased shortness of breath as well as massive swelling to his legs. [facility] reported that his oxygen saturation was in the low 80s and was having difficulty breathing. When he came in, he had massive swelling to his legs and was having problems with his breathing and as a result of this, the patient was admitted to the hospitalist. Chest x-ray showed no obvious signs of heart failure, but his BNP was almost 700 and he did have a patchy infiltrative process consistent with possibility of pneumonia. In any case, the patient was admitted for cellulitis to the legs with massive edema, chronic congestive heart failure, pneumonia of unspecified etiology, and history of pancreatic cancer, undergoing chemotherapy, so he is somewhat immunosuppressed. PAST MEDICAL HISTORY: As noted, type 2 diabetes, hypertension, chronic back pain, pancreatic cancer. PAST SURGICAL HISTORY: He has undergone Whipple procedure, osteotomy, left chest port and spinal stimulator. SOCIAL HISTORY: The patient has about a 40-50 pack year smoking, quit about a year ago. Denies alcohol or drug use. FAMILY HISTORY: Unremarkable. ALLERGIES: The patient has no known drug allergies. MEDICATIONS: His home medications include Tylenol, ProAir inhaler, albuterol nebulizer treatment, aspirin 81, ____ for the right eye, calcium carbonate, cholestyramine, Flexeril 10 mg p.r.n., dexamethasone 4 mg t.i.d., dicyclomine 20 mg q.i.d., docusate sodium, fluticasone nasal spray, furosemide 40 mg a day, gemfibrozil 600 mg b.i.d., glyburide 5 mg a day, magnesium oxide, morphine sulfate 1 tablet 4 times a day 15 mg, morphine sulfate extended release 30 mg b.i.d., Vigamox eye drops, Prilosec 20 mg a day, prednisolone 5 mL drop suspension, Flomax 1 capsule daily, trazodone 50 mg at bedtime, ferrous sulfate 325, Triglide 160 mg daily. REVIEW OF SYSTEMS: Increased shortness of breath. No chest pain or coughing. The patient does have diffuse abdominal pain from his pancreatic cancer. Denies any melena, hematochezia, or hematemesis. Does have massive swelling with multiple bruises to his legs. Apparently, he fell, had a contusion to his right forehead and around the right orbit. Also, multiple abrasions to the right arm and right leg with multiple skin tears noted. PHYSICAL EXAMINATION: GENERAL: This is a white male, in moderate amount of distress. VITAL SIGNS: Blood pressure 130/80, respiratory rate 18, pulse 95, afebrile, oxygen saturation 88%. HEENT: The patient's head was traumatic to the right forehead. There is an ecchymotic area currently going down into the orbit of the eye. The eyes themselves were PERRLA, EOMI, sclerae clear. Mouth and throat: Poor dentition. NECK: Supple, without JVD or carotid bruits. No thyromegaly. LUNGS: Diminished throughout, but basically clear except for the bases that showed some rales and rhonchi noted. CARDIOVASCULAR: Regular sinus rhythm, S1, S2, without murmur, thrill, rub, or extra heart sounds. ABDOMEN: Soft, nontender, scaphoid. EXTREMITIES: Without clubbing or cyanosis. There is marked edema, +3 to 4 pitting edema. There are multiple abrasions to the legs and sores and blistering ____ noted on the legs themselves, bulging. He also has multiple abrasions and skin tears to the right arm as well, although he has good range of motion. NEUROLOGIC: Speech fluent, spontaneous and appropriate. Cranial nerves 2-12 grossly intact. LABORATORY DATA: Potassium elevated at 5.7, BUN and creatinine 28 and 2.2, glucose 172. BNP of 680, albumin low at 230. IMPRESSION AND PLAN: Pneumonia of unspecified etiology, left lower lobe, chronic congestive heart failure. Fall at home with multiple contusions to the right arm and both legs, concussion and contusion to the right side of the forehead, pancreatic cancer, chronic kidney disease stage 3, type 2 diabetes, severe protein malnutrition, hyperkalemia, hyponatremia. Continue to monitor given Lasix, diuresis him and make further evaluation on the situation and continue on vancomycin for the legs as well as his pneumonic process as well. MARCE WARREN MD DR: HERB/hernan JOB#: [id number] / [id number]
[2017-01-26] MEDS: DOXYCYCLINE HYCLATE 100 MG TABLET PO SCH ×2 (14:19→20:11)
[2017-01-26] MEDS ORDERED: IPRATRPIUM/ALBUTEROL 0.5/2.5MG 3 ML NEBU. ONE (15:04)
[2017-01-26 15:23] VITALS: BP 115/60
--- NOTE | 2017-01-26 16:50 | RAD ---
Ventilation/perfusion lung scan, 01/25/2017: History: Elevated d-dimer The ventilation study was performed utilizing 9.7 mCi of xenon-133. Activity in the lungs is mildly heterogeneous. There is mild patchy retention in the lungs on the washout phase. Perfusion imaging was performed utilizing 5.5 mCi of technetium 99m MAA. Several small peripheral perfusion defects are present, predominantly in the upper lobes. These are unchanged since 12/27/2016. A previous CT study demonstrated considerable emphysema in the upper lobes. No new perfusion defects are seen. IMPRESSION: 1. Abnormal ventilation study compatible with emphysema. 2. Small bilateral perfusion defects are unchanged since 12/27/2016. These are probably related to the emphysema. Chronic pulmonary emboli are less likely. No new abnormality is detected.
[2017-01-26 20:07] VITALS: BP 111/55
[2017-01-26] MEDS: traZODone 50 MG TABLET. PO SCH (20:11)
[2017-01-26] MEDS: glyBURIDE 5 MG TABLET PO SCH (20:11)
[2017-01-26] MEDS: ENOXAPARIN 30 MG/0.3 ML DISP.SYRIN. SQ SCH (20:13)
[2017-01-26 23:36] VITALS: BP 111/61
[2017-01-27] MEDS: MORPHINE IR 15 MG TABLET PO PRN ×2 (00:03→22:18)
[2017-01-27 05:37] LABS: BASO % 0 % (0-3); EOS % 0 % (0-3); HEMATOCRIT 25.1 % (39.0-53.0); HEMOGLOBIN 8.4 g/dL (13.0-17.5); LYMPH # 0.4 x10^3/uL (1.0-4.8); LYMPH % 7 % (24-48); MEAN CORPUSCULAR HEMOGLOBIN 39 pg (25-35); MEAN CORPUSCULAR HGB CONC 34 g/dL (31-37); MEAN CORPUSCULAR VOLUME 114 fL (79-100); MONO # 0.1 x10^3/uL (0.0-1.1); MONO % 3 % (0-9); NEUT % 91 % (31-73); PLATELET COUNT 186 x10^3/uL (140-400); RED BLOOD COUNT 2.19 x10^6/uL (4.30-5.70); RED CELL DISTRIBUTION WIDTH 19.3 % (11.5-14.5); WHITE BLOOD COUNT 5.6 x10^3/uL (4.0-11.0)
[2017-01-27 05:43] LABS: CALCIUM 7.5 mg/dL (8.5-10.1); CREATININE 2.1 mg/dL (0.7-1.3); GFR 31.6; POTASSIUM 5.8 mmol/L (3.5-5.1)
[2017-01-27 06:03] VITALS: BP 111/63
[2017-01-27] MEDS: ASPIRIN 81 MG TAB.CHEW PO SCH (07:48)
[2017-01-27] MEDS: FERROUS SULFATE 325 MG TABLET. PO SCH (07:48)
[2017-01-27] MEDS: FENOFIBRATE NANOCRYSTALLIZED 145 MG TABLET PO SCH (07:48)
[2017-01-27] MEDS: CHOLESTYRAMINE/ASPARTAME 4 GM PACKET PO SCH (07:48)
[2017-01-27] MEDS: DOXYCYCLINE HYCLATE 100 MG TABLET PO SCH ×2 (07:48→21:41)
[2017-01-27] MEDS: TAMSULOSIN 0.4 MG CAP.ER.24H. PO SCH (07:48)
[2017-01-27] MEDS: PANTOPRAZOLE 40 MG TABLET. PO SCH (07:48)
[2017-01-27] MEDS: DOCUSATE SODIUM 100 MG CAPSULE PO SCH (07:48)
[2017-01-27] MEDS: MAGNESIUM CHLORIDE ER 64 MG TABLET.ER PO SCH (07:48)
[2017-01-27] MEDS: GEMFIBROZIL 600 MG TABLET. PO SCH ×2 (07:48→21:41)
[2017-01-27] MEDS: LACTOBACILLUS RHAMNOSUS GG 1 CAPSULE. PO SCH ×2 (07:48→21:41)
[2017-01-27] MEDS: DICYCLOMINE HCL 20 MG TABLET PO SCH ×4 (07:48→21:41)
[2017-01-27] MEDS: FLUTICASONE 50MCG/NASAL SPRAY 16GM BOTTLE. NS SCH (07:51)
[2017-01-27] MEDS: KETOROLAC TROMETHAMINE 0.5% OPHTH SOLUTION 3ML BOTTLE. OD SCH ×4 (07:51→21:45)
[2017-01-27] MEDS: MOXIFLOXACIN 0.5% OPHTH SOLUTION 3ML BOTTLE. OU SCH ×3 (07:51→21:45)
[2017-01-27] MEDS: prednisoLONE ACETATE 1% OPHTH SUSPENSION 5ML BOTTLE. OD SCH ×3 (07:51→21:45)
[2017-01-27] MEDS: DEXAMETHASONE 0.5 MG TABLET PO SCH ×3 (07:52→21:44)
[2017-01-27] MEDS: FUROSEMIDE 20 MG/2 ML VIAL IVP SCH ×2 (07:53→13:36)
[2017-01-27] MEDS: ALBUTEROL SULFATE 2.5 MG/3 ML NEBU. NEB SCH ×2 (09:46→21:44)
[2017-01-27] MEDS: VANCOMYCIN 1 GM in IV NORMAL SALINE 250ML 250 ML IV SCH (11:04)
[2017-01-27 12:09] VITALS: BP 107/47
[2017-01-27 15:44] VITALS: BP 114/60
[2017-01-27 20:19] VITALS: BP 114/63
[2017-01-27] MEDS: glyBURIDE 5 MG TABLET PO SCH (21:41)
[2017-01-27] MEDS: traZODone 50 MG TABLET. PO SCH (21:41)
[2017-01-27] MEDS: ENOXAPARIN 30 MG/0.3 ML DISP.SYRIN. SQ SCH (21:44)
--- NOTE | 2017-01-28 00:29 | PN ---
DATE: SUBJECTIVE: The patient in with shortness of breath as well as cellulitis to his lower extremities with multiple blistering. Hemoglobin is stable at 8.4 and 25. He says he is feeling better, is moving around better, swelling is down, but still requiring IV antibiotic therapy. OBJECTIVE: VITAL SIGNS: Blood pressure 110/60, respiration 18, pulse 70, afebrile. LUNGS: Diminished throughout, but clear. CARDIOVASCULAR: Stable. ABDOMEN: Soft. EXTREMITIES: Legs looked improved, they are less swollen. Wound is still present. Daily wound care. Continue on IV antibiotic therapy and perhaps move him to the skilled unit again. V/Q scan negative. IMPRESSION: Therefore of pneumonia of unspecified etiology, left lower lobe; chronic congestive heart failure; multiple contusions, they seem to be healing up very nicely; history of pancreatic cancer; chronic kidney disease stage 3; type 2 diabetes; severe protein malnutrition; hyponatremia, improved. Continue vancomycin, continue monitoring electrolytes. MARCE WARREN MD DR: HERB/hernan JOB#: [id number] / [id number]
[2017-01-28 06:44] VITALS: BP 117/70
[2017-01-28] MEDS: ALBUTEROL SULFATE 2.5 MG/3 ML NEBU. NEB SCH ×2 (09:16→21:18)
[2017-01-28] MEDS: MAGNESIUM CHLORIDE ER 64 MG TABLET.ER PO SCH (09:30)
[2017-01-28] MEDS: DICYCLOMINE HCL 20 MG TABLET PO SCH ×4 (09:30→21:29)
[2017-01-28] MEDS: FENOFIBRATE NANOCRYSTALLIZED 145 MG TABLET PO SCH (09:30)
[2017-01-28] MEDS: GEMFIBROZIL 600 MG TABLET. PO SCH ×2 (09:30→21:29)
[2017-01-28] MEDS: PANTOPRAZOLE 40 MG TABLET. PO SCH (09:30)
[2017-01-28] MEDS: DOXYCYCLINE HYCLATE 100 MG TABLET PO SCH ×2 (09:30→21:29)
[2017-01-28] MEDS: LACTOBACILLUS RHAMNOSUS GG 1 CAPSULE. PO SCH ×2 (09:30→21:30)
[2017-01-28] MEDS: DOCUSATE SODIUM 100 MG CAPSULE PO SCH (09:30)
[2017-01-28] MEDS: MORPHINE IR 15 MG TABLET PO PRN ×2 (09:30→23:07)
[2017-01-28] MEDS: TAMSULOSIN 0.4 MG CAP.ER.24H. PO SCH (09:30)
[2017-01-28] MEDS: ASPIRIN 81 MG TAB.CHEW PO SCH (09:30)
[2017-01-28] MEDS: DEXAMETHASONE 0.5 MG TABLET PO SCH ×3 (09:31→21:30)
[2017-01-28] MEDS: FUROSEMIDE 20 MG/2 ML VIAL IVP SCH ×2 (09:31→14:15)
[2017-01-28] MEDS: FLUTICASONE 50MCG/NASAL SPRAY 16GM BOTTLE. NS SCH (09:31)
[2017-01-28] MEDS: CHOLESTYRAMINE/ASPARTAME 4 GM PACKET PO SCH (09:31)
[2017-01-28] MEDS: KETOROLAC TROMETHAMINE 0.5% OPHTH SOLUTION 3ML BOTTLE. OD SCH ×4 (09:32→21:30)
[2017-01-28] MEDS: MOXIFLOXACIN 0.5% OPHTH SOLUTION 3ML BOTTLE. OU SCH ×3 (09:32→21:30)
[2017-01-28] MEDS: prednisoLONE ACETATE 1% OPHTH SUSPENSION 5ML BOTTLE. OD SCH ×3 (09:32→21:30)
[2017-01-28 09:42] LABS: BASO % 0 % (0-3); EOS % 0 % (0-3); HEMATOCRIT 22.8 % (39.0-53.0); HEMOGLOBIN 8.1 g/dL (13.0-17.5); LYMPH # 0.5 x10^3/uL (1.0-4.8); LYMPH % 6 % (24-48); MEAN CORPUSCULAR HEMOGLOBIN 40 pg (25-35); MEAN CORPUSCULAR HGB CONC 35 g/dL (31-37); MEAN CORPUSCULAR VOLUME 112 fL (79-100); MONO # 0.4 x10^3/uL (0.0-1.1); MONO % 5 % (0-9); NEUT # 7.4 x10^3uL (1.8-7.7); NEUT % 89 % (31-73); PLATELET COUNT 187 x10^3/uL (140-400); RED BLOOD COUNT 2.03 x10^6/uL (4.30-5.70); RED CELL DISTRIBUTION WIDTH 18.8 % (11.5-14.5); WHITE BLOOD COUNT 8.3 x10^3/uL (4.0-11.0)
[2017-01-28 09:48] LABS: CALCIUM 7.7 mg/dL (8.5-10.1); CREATININE 2.4 mg/dL (0.7-1.3); GFR 27.1
[2017-01-28] MEDS: VANCOMYCIN 1 GM in IV NORMAL SALINE 250ML 250 ML IV SCH (10:16)
[2017-01-28] MEDS: VANCOMYCIN PER PHARMACY MC PRN (10:35)
[2017-01-28 10:49] VITALS: BP 117/61
[2017-01-28] MEDS: FERROUS SULFATE 325 MG TABLET. PO SCH (11:42)
--- NOTE | 2017-01-28 12:08 | PN ---
DATE: 01/28/2017 SUBJECTIVE: The patient is a 66-year-old gentleman in with cellulitis to his lower legs as well as history of pancreatic cancer for which he is undergoing chemotherapy. The patient says he is feeling a little bit better, has still infection in the leg, but making good improvement overall, receiving dressing changes there. Blood pressure 117/70, respiration 18, pulse 80, afebrile. The patient is still receiving IV antibiotic therapy of vancomycin. The patient is alert and oriented. OBJECTIVE: VITAL SIGNS: Include blood pressure 120/70, respiration 18, pulse 79, afebrile. GENERAL: The patient is alert and oriented. LUNGS: Diminished throughout, but clear. CARDIOVASCULAR: Regular sinus rhythm. ABDOMEN: Soft. EXTREMITIES: Legs show marked improvement, still inflamed, however, but decreasing in size. NEUROLOGIC: The patient otherwise is alert and oriented x 3. Speech fluent, spontaneous, appropriate. Cranial nerves 2-12 grossly intact. The patient continue on the IV antibiotic therapy there. IMPRESSION: Cellulitis to the lower extremities; pneumonia of unspecified etiology, community acquired; multiple contusions from fall, healing well; history of pancreatic cancer, chronic kidney disease stage 3, type 2 diabetes, severe protein malnutrition. PLAN: Continue on vancomycin and monitor electrolytes. MARCE WARREN MD DR: HERB/hernan JOB#: [id number] / [id number]
[2017-01-28 15:15] VITALS: BP 139/70
[2017-01-28 19:47] VITALS: BP 153/79
[2017-01-28] MEDS: glyBURIDE 5 MG TABLET PO SCH (21:29)
[2017-01-28] MEDS: traZODone 50 MG TABLET. PO SCH (21:29)
[2017-01-28] MEDS: ENOXAPARIN 30 MG/0.3 ML DISP.SYRIN. SQ SCH (21:30)
[2017-01-28 23:19] VITALS: BP 129/68
[2017-01-29 05:35] VITALS: BP 107/56
[2017-01-29 05:47] LABS: BASO % 0 % (0-3); EOS % 0 % (0-3); HEMOGLOBIN 7.4 g/dL (13.0-17.5); LYMPH # 0.5 x10^3/uL (1.0-4.8); LYMPH % 7 % (24-48); MEAN CORPUSCULAR HEMOGLOBIN 40 pg (25-35); MEAN CORPUSCULAR HGB CONC 35 g/dL (31-37); MEAN CORPUSCULAR VOLUME 113 fL (79-100); MONO # 0.3 x10^3/uL (0.0-1.1); MONO % 3 % (0-9); NEUT # 7.5 x10^3uL (1.8-7.7); NEUT % 90 % (31-73); PLATELET COUNT 180 x10^3/uL (140-400); RED BLOOD COUNT 1.86 x10^6/uL (4.30-5.70); RED CELL DISTRIBUTION WIDTH 18.9 % (11.5-14.5); WHITE BLOOD COUNT 8.3 x10^3/uL (4.0-11.0)
[2017-01-29 05:49] LABS: CALCIUM 7.6 mg/dL (8.5-10.1); CREATININE 2.4 mg/dL (0.7-1.3); GFR 27.1
[2017-01-29 07:02] LABS: % BANDS 3 % (0-9); % LYMPHS 6 % (24-48); % METAS 1 % (0-0); % SEGS 90 % (35-66); NUCLEATED RBC 4
[2017-01-29 07:05] LABS: ANISOCYTOSIS SLIGHT; MICROCYTOSIS SLIGHT; OVALOCYTES OCC; PLT ESTIMATE ADEQUATE (ADEQUATE); POIKILOCYTOSIS MOD; POLYCHROMASIA SLIGHT; SPHEROCYTES OCC; TEAR DROP CELLS OCC
[2017-01-29 07:06] LABS: SCHISTOCYTES FEW
[2017-01-29] MEDS: DICYCLOMINE HCL 20 MG TABLET PO SCH ×4 (08:34→21:04)
[2017-01-29] MEDS: DOCUSATE SODIUM 100 MG CAPSULE PO SCH (08:34)
[2017-01-29] MEDS: ASPIRIN 81 MG TAB.CHEW PO SCH (08:34)
[2017-01-29] MEDS: PANTOPRAZOLE 40 MG TABLET. PO SCH (08:34)
[2017-01-29] MEDS: LACTOBACILLUS RHAMNOSUS GG 1 CAPSULE. PO SCH ×2 (08:34→20:58)
[2017-01-29] MEDS: MAGNESIUM CHLORIDE ER 64 MG TABLET.ER PO SCH (08:34)
[2017-01-29] MEDS: GEMFIBROZIL 600 MG TABLET. PO SCH ×2 (08:34→20:58)
[2017-01-29] MEDS: DOXYCYCLINE HYCLATE 100 MG TABLET PO SCH ×2 (08:34→20:58)
[2017-01-29] MEDS: TAMSULOSIN 0.4 MG CAP.ER.24H. PO SCH (08:34)
[2017-01-29] MEDS: CHOLESTYRAMINE/ASPARTAME 4 GM PACKET PO SCH (08:35)
[2017-01-29] MEDS: FLUTICASONE 50MCG/NASAL SPRAY 16GM BOTTLE. NS SCH (08:35)
[2017-01-29] MEDS: KETOROLAC TROMETHAMINE 0.5% OPHTH SOLUTION 3ML BOTTLE. OD SCH ×4 (08:35→21:02)
[2017-01-29] MEDS: MOXIFLOXACIN 0.5% OPHTH SOLUTION 3ML BOTTLE. OU SCH ×3 (08:35→21:01)
[2017-01-29] MEDS: FENOFIBRATE NANOCRYSTALLIZED 145 MG TABLET PO SCH (08:35)
[2017-01-29] MEDS: DEXAMETHASONE 0.5 MG TABLET PO SCH ×3 (08:35→21:01)
[2017-01-29] MEDS: prednisoLONE ACETATE 1% OPHTH SUSPENSION 5ML BOTTLE. OD SCH ×3 (08:36→21:00)
[2017-01-29] MEDS: ALBUTEROL SULFATE 2.5 MG/3 ML NEBU. NEB SCH ×2 (09:39→20:49)
[2017-01-29 10:54] VITALS: BP 121/68
--- NOTE | 2017-01-29 11:07 | PN ---
DATE: 01/25/2017 SUBJECTIVE: He is resting fairly comfortably, making good progress with his legs. The patient's legs are down, still having infection in there; however, his hemoglobin has dropped to 7.4. We will continue to monitor that. His potassium was elevated to 6 even though he is not on potassium. BUN and creatinine for gradually gone up. We will discontinue the Lasix, continue on his IV antibiotic therapy and continue to monitor her fluid intake. We will get an iron level on him and make further evaluation on him as indicated. Otherwise, the legs are much improved. PHYSICAL EXAMINATION: VITAL SIGNS: Blood pressure 110/60, respiration 16, pulse 75, afebrile. LUNGS: Diminished, but clear. CARDIOVASCULAR: Regular sinus rhythm. ABDOMEN: Soft and nontender. EXTREMITIES: Legs still show signs of healing. They have got wraps of iodoform dressing on him. His wounds on his right arm and face are healing up very nicely. IMPRESSION: Therefore, cellulitis to the legs; pneumonia of unspecified etiology, community acquired; multiple contusions from fall; history of pancreatic cancer; hyperkalemia; chronic kidney disease III; type 2 diabetes; severe protein malnutrition, also be started on Kayexalate to get his potassium down. MARCE WARREN MD DR: HERB/hernan JOB#: [id number] / [id number]
[2017-01-29] MEDS: VANCOMYCIN 1 GM in IV NORMAL SALINE 250ML 250 ML IV SCH (11:32)
[2017-01-29] MEDS: SODIUM POLYSTYRENE SULFONATE 15 GM/60 ML ORAL.SUSP. PO SCH ×3 (11:32→20:57)
[2017-01-29] MEDS: FERROUS SULFATE 325 MG TABLET. PO SCH (11:33)
[2017-01-29 15:00] VITALS: BP 125/79
[2017-01-29 18:28] LABS: FECAL OB PT NEGATIVE (NEG)
[2017-01-29 20:10] VITALS: BP 132/78
[2017-01-29] MEDS: ENOXAPARIN 30 MG/0.3 ML DISP.SYRIN. SQ SCH (20:58)
[2017-01-29] MEDS: traZODone 50 MG TABLET. PO SCH (20:58)
[2017-01-29] MEDS: glyBURIDE 5 MG TABLET PO SCH (20:58)
[2017-01-29 22:10] VITALS: BP 137/73
[2017-01-30] MEDS: MORPHINE IR 15 MG TABLET PO PRN (05:28)
[2017-01-30 06:14] VITALS: BP 153/81
[2017-01-30 06:56] LABS: CREATININE 2.4 mg/dL (0.7-1.3); GFR 27.1; POTASSIUM 4.8 mmol/L (3.5-5.1)
[2017-01-30] MEDS: DICYCLOMINE HCL 20 MG TABLET PO SCH ×2 (08:37→13:07)
[2017-01-30] MEDS: ASPIRIN 81 MG TAB.CHEW PO SCH (08:37)
[2017-01-30] MEDS: TAMSULOSIN 0.4 MG CAP.ER.24H. PO SCH (08:37)
[2017-01-30] MEDS: CHOLESTYRAMINE/ASPARTAME 4 GM PACKET PO SCH (08:37)
[2017-01-30] MEDS: DOXYCYCLINE HYCLATE 100 MG TABLET PO SCH (08:38)
[2017-01-30] MEDS: FENOFIBRATE NANOCRYSTALLIZED 145 MG TABLET PO SCH (08:38)
[2017-01-30] MEDS: LACTOBACILLUS RHAMNOSUS GG 1 CAPSULE. PO SCH (08:38)
[2017-01-30] MEDS: GEMFIBROZIL 600 MG TABLET. PO SCH (08:38)
[2017-01-30] MEDS: PANTOPRAZOLE 40 MG TABLET. PO SCH (08:39)
[2017-01-30] MEDS: DEXAMETHASONE 0.5 MG TABLET PO SCH ×2 (08:39→13:08)
[2017-01-30] MEDS: FLUTICASONE 50MCG/NASAL SPRAY 16GM BOTTLE. NS SCH (08:39)
[2017-01-30] MEDS: DOCUSATE SODIUM 100 MG CAPSULE PO SCH (08:39)
[2017-01-30] MEDS: prednisoLONE ACETATE 1% OPHTH SUSPENSION 5ML BOTTLE. OD SCH ×2 (08:39→13:08)
[2017-01-30] MEDS: MAGNESIUM CHLORIDE ER 64 MG TABLET.ER PO SCH (08:39)
[2017-01-30] MEDS: MOXIFLOXACIN 0.5% OPHTH SOLUTION 3ML BOTTLE. OU SCH ×2 (08:40→13:08)
[2017-01-30] MEDS: SODIUM POLYSTYRENE SULFONATE 15 GM/60 ML ORAL.SUSP. PO SCH ×2 (08:40→13:08)
[2017-01-30] MEDS: KETOROLAC TROMETHAMINE 0.5% OPHTH SOLUTION 3ML BOTTLE. OD SCH ×2 (08:40→13:08)
[2017-01-30] MEDS: ALBUTEROL SULFATE 2.5 MG/3 ML NEBU. NEB SCH (10:55)
[2017-01-30] MEDS: VANCOMYCIN 1 GM in IV NORMAL SALINE 250ML 250 ML IV SCH (11:14)
[2017-01-30] MEDS: FERROUS SULFATE 325 MG TABLET. PO SCH (11:15)
[2017-01-30] MEDS ORDERED: DOXY100T PO (14:00)
[2017-01-30] MEDS ORDERED: LACT1CAP19 PO (14:00)
[2017-01-30] MEDS ORDERED: VANC1PLA9 IV (14:00)
[2017-01-30] MEDS ORDERED: FURO20TA3 PO (14:00)
--- NOTE | 2017-02-02 11:31 | EKG ---
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
== END 2017-01-30 17:15 | disposition home health service (06) | DRG 602 ==
LOC: 1 SOUTH 18:49
PROVIDERS: ADMIT Family Medicine; ATTEND Family Medicine
DX: L03.115 Cellulitis of right lower limb (principal); J18.1 Lobar pneumonia, unspecified organism; E43 Unspecified severe protein-calorie malnutrition; I13.0 Hypertensive heart and chronic kidney disease with heart failure and stage 1 through stage 4 chronic kidney disease, or unspecified chronic kidney disease; C25.9 Malignant neoplasm of pancreas, unspecified; E11.22 Type 2 diabetes mellitus with diabetic chronic kidney disease; I50.9 Heart failure, unspecified; E87.1 Hypo-osmolality and hyponatremia; E87.5 Hyperkalemia; N18.3 Chronic kidney disease, stage 3 (moderate); L03.116 Cellulitis of left lower limb; G89.29 Other chronic pain; M54.9 Dorsalgia, unspecified; S40.021A Contusion of right upper arm, initial encounter; S80.12XA Contusion of left lower leg, initial encounter; S80.11XA Contusion of right lower leg, initial encounter; W19.XXXA Unspecified fall, initial encounter; Y92.009 Unspecified place in unspecified non-institutional (private) residence as the place of occurrence of the external cause; Y99.8 Other external cause status; Y93.89 Activity, other specified; Z87.891 Personal history of nicotine dependence; Z79.82 Long term (current) use of aspirin; Z79.899 Other long term (current) drug therapy; Z68.22 Body mass index [BMI] 22.0-22.9, adult; Z92.21 Personal history of antineoplastic chemotherapy
CPT/HCPCS: 36415; 70450; 71010; 78582; 80048; 80053; 80202; 81001; 82274; 82947; 83540; 83550; 83605; 83880; 85007; 85025; 85379; 93005; 94640; 94760; 96374; A9540; A9558; J1650; J3370; J7040; J7050; J7613; J7620; J8540; 97116

== ENCOUNTER 2017-02-24 15:47 | Inpatient (IN) | payer MEDICARE, OTHER ==
[~2017-02-24] VITALS: Ht 177.8 cm; Wt 75.5 kg
[~2017-02-24 15:47] MED LIST changes: +DOXY100T PO; +FURO20TA3 PO; -IBUP200T43 PO; +IBUP200T44 PO; +LACT1CAP19 PO; +VANC1PLA9 IV
--- NOTE | 2017-02-24 16:58 | RAD ---
Portable chest, 02/24/2017: History: Weakness Comparison is made to a study from 01/25/2017. A left Port-A-Cath extends to the level of the atriocaval junction. Spinal stimulator leads extend into the mid thoracic spinal canal. The heart size and pulmonary vascularity are normal. There are mild parenchymal scars. No acute infiltrate is seen. There is no evidence of pleural fluid. Old right-sided rib fractures are again noted. IMPRESSION: No acute cardiopulmonary abnormality is detected.
[2017-02-24 17:12] LABS: BASO % 0 % (0-3); EOS % 0 % (0-3); HEMOGLOBIN 7.5 g/dL (13.0-17.5); LYMPH # 0.9 x10^3/uL (1.0-4.8); LYMPH % 12 % (24-48); MEAN CORPUSCULAR HEMOGLOBIN 40 pg (25-35); MEAN CORPUSCULAR HGB CONC 34 g/dL (31-37); MEAN CORPUSCULAR VOLUME 117 fL (79-100); MONO % 13 % (0-9); NEUT # 5.3 x10^3uL (1.8-7.7); NEUT % 74 % (31-73); PLATELET COUNT 135 x10^3/uL (140-400); RED BLOOD COUNT 1.88 x10^6/uL (4.30-5.70); RED CELL DISTRIBUTION WIDTH 21.4 % (11.5-14.5); WHITE BLOOD COUNT 7.2 x10^3/uL (4.0-11.0)
--- NOTE | 2017-02-24 17:21 | EKG ---
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
[2017-02-24 17:34] LABS: ALBUMIN 1.8 g/dL (3.4-5.0); ALBUMIN/GLOBULIN RATIO 0.8 (1.0-1.7); CALCIUM 7.1 mg/dL (8.5-10.1); CREATININE 2.9 mg/dL (0.7-1.3); GFR 21.7; MAGNESIUM 1.2 mg/dL (1.8-2.4); PHOSPHORUS 4.3 mg/dL (2.6-4.7); TOTAL BILIRUBIN 1.1 mg/dL (0.2-1.0); TOTAL PROTEIN 4.1 g/dL (6.4-8.2)
[2017-02-24 17:39] LABS: POTASSIUM 6.7 mmol/L (3.5-5.1)
[2017-02-24] MEDS ORDERED: SODIUM POLYSTYRENE SULFONATE 15 GM/60 ML ORAL.SUSP. PO ONE (17:45)
[2017-02-24] MEDS ORDERED: ALBUTEROL SULFATE 2.5 MG/3 ML NEBU. CONT NEB ONE (17:45)
[2017-02-24] MEDS ORDERED: DEXTROSE 50% 25 GM / 50ML DISP.SYRIN. IV ONE (17:45)
[2017-02-24] MEDS ORDERED: INSULIN REGULAR 100 UNIT/ML 10ML VIAL. IV ONE (17:45)
[2017-02-24] MEDS ORDERED: IV NORMAL SALINE 1,000ML 1,000 ML IV ONE ×2 (17:45→18:15)
[2017-02-24] MEDS ORDERED: SODIUM BICARB ADULT 8.4% 50 MEQ/50 ML DISP.SYRIN. IV ONE (17:45)
[2017-02-24] MEDS ORDERED: ONDANSETRON PF 4 MG/2 ML VIAL. IV PRN (18:00)
[2017-02-24 18:06] LABS: BARBITURATES NEG (NEG); BENZODIAZEPINES NEG (NEG); CANNABINOIDS NEG (NEG); COCAINE NEG (NEG); METHADONE NEG (NEG); OPIATES POS (NEG); PHENCYCLIDINE NEG (NEG)
[2017-02-24 18:07] LABS: BACTERIA,URINE 0 /HPF (0-FEW); BILIRUBIN,URINE NEG (NEG); CLARITY,URINE CLEAR; COLOR,URINE AMBER; GLUCOSE,URINE NEG (NEG); NITRITE,URINE NEG (NEG); RBC,URINE 0 /HPF (0-2); SQUAMOUS EPITHELIAL CELL,UR OCC /LPF; UROBILINOGEN,URINE 0.2 mg/dL (0.2 mg/dL); WBC,URINE OCC /HPF (0-4)
[2017-02-24 18:08] LABS: AMPHETAMINE/METHAMPHETAMINE NEG (NEG)
[2017-02-24] MEDS ORDERED: IV NORMAL SALINE 100ML 100 ML ONE ×2 (18:12→18:14)
--- NOTE | 2017-02-24 18:13 | PHYS DOC ---
Past History Past Medical History: Arthritis, Cancer, COPD, Diabetes, GERD, High Cholesterol , Hypertension, Pancreatitis Past Surgical History: Appendectomy, Cholecystectomy, Colectomy, Coronary Bypass Surgery, Gastric Bypass, Tonsillectomy, Other Smoking: Non-smoker Alcohol Use: None Drug Use: None Adult General Chief Complaint Chief Complaint: HYPERKALEMIA HPI HPI 66-year-old male patient was seen by his cancer physician at [facility] and had elevation of potassium but refuses admission at [facility] and decided to come to this emergency room because of it is closer to his home. Patient complaining of generalized weakness without fever and chills, nausea and vomiting, focal neuro deficit, shortness of breath, chest pain, urinary symptom , abdominal pain. Review of Systems Review of Systems Constitutional: Denies fever or chills [] Eyes: Denies change in visual acuity, redness, or eye pain [] HENT: Denies nasal congestion or sore throat [] Respiratory: Denies cough or shortness of breath [] Cardiovascular: No additional information not addressed in HPI [] GI: Denies abdominal pain, nausea, vomiting, bloody stools or diarrhea [] : Denies dysuria or hematuria [] Musculoskeletal: Denies back pain or joint pain [] Integument: Denies rash or skin lesions [] Neurologic: Denies headache, focal weakness or sensory changes [] Endocrine: Denies polyuria or polydipsia [] All other systems were reviewed and found to be within normal limits, except as documented in this note. Current Medications Current Medications Current Medications Medications (Trade) Dose Ordered Sig/Pablo Start Time Stop Time Status Last Admin Dose Admin Albuterol Sulfate (Ventolin) 10 mg 1X ONCE 02/24/17 17:45 02/24/17 17:47 DC 02/24/17 17:55 10 MG Ceftriaxone Sodium 2 gm/ Sodium Chloride 100 ml @ 200 mls/hr 1X ONCE 02/24/17 18:00 02/24/17 18:29 UNV Dextrose 25 gm 1X ONCE 02/24/17 17:45 02/24/17 17:47 DC Insulin Human Regular (NovoLIN R) 10 unit 1X ONCE 02/24/17 17:45 02/24/17 17:47 DC Ondansetron HCl (Zofran) 4 mg PRN Q4HRS PRN 02/24/17 18:00 02/25/17 17:59 UNV Sodium Polystyrene Sulfonate (Kayexalate) 15 gm 1X ONCE 02/24/17 17:45 02/24/17 17:47 DC Sodium Bicarbonate 50 meq 1X ONCE 02/24/17 17:45 02/24/17 17:47 DC Sodium Chloride 1,000 ml @ 100 mls/hr Q10H 02/24/17 17:58 02/25/17 17:57 UNV Allergies Allergies Allergies Coded Allergies Type Severity Reaction Last Updated Verified No Known Drug Allergies 05/06/13 No Physical Exam Physical Exam Constitutional: malnourished, no acute distress, pale, non-toxic appearance. [] HENT: Normocephalic, atraumatic, bilateral external ears normal, oropharynx moist, no oral exudates, nose normal. [] Eyes: PERRLA, EOMI, conjunctiva normal, no discharge. [] Neck: Normal range of motion, no tenderness, supple, no stridor. [] Cardiovascular:Heart rate regular rhythm, no murmur [] Lungs & Thorax: Bilateral breath sounds clear to auscultation []colostomy in place. [] Skin: Warm, dry, no erythema, no rash. [] Back: No tenderness, no CVA tenderness. [] Extremities: No tenderness, no cyanosis, no clubbing, ROM intact, no edema. [] Neurologic: Alert and oriented X 3, normal motor function, normal sensory function, no focal deficits noted. [] Psychologic: Affect normal, judgement normal, mood normal. [] Current Patient Data Vital Signs Vital Signs Date Time Temp Pulse Resp B/P (MAP) Pulse Ox O2 Delivery O2 Flow Rate FiO2 02/24/17 16:25 97.7 122 12 100 Room Air Lab Results Laboratory Tests Test 02/24/17 16:45 White Blood Count 7.2 x10^3/uL (4.0-11.0) Red Blood Count 1.88 x10^6/uL (4.30-5.70) L Hemoglobin 7.5 g/dL (13.0-17.5) L Hematocrit 22.0 % (39.0-53.0) L Mean Corpuscular Volume 117 fL (79-100) H Mean Corpuscular Hemoglobin 40 pg (25-35) H Mean Corpuscular Hemoglobin Concent 34 g/dL (31-37) Red Cell Distribution Width 21.4 % (11.5-14.5) H Platelet Count 135 x10^3/uL (140-400) L Neutrophils (%) (Auto) 74 % (31-73) H Lymphocytes (%) (Auto) 12 % (24-48) L Monocytes (%) (Auto) 13 % (0-9) H Eosinophils (%) (Auto) 0 % (0-3) Basophils (%) (Auto) 0 % (0-3) Neutrophils # (Auto) 5.3 x10^3uL (1.8-7.7) Lymphocytes # (Auto) 0.9 x10^3/uL (1.0-4.8) L Monocytes # (Auto) 1.0 x10^3/uL (0.0-1.1) Eosinophils # (Auto) 0.0 x10^3/uL (0.0-0.7) Basophils # (Auto) 0.0 x10^3/uL (0.0-0.2) Platelet Estimate Pending Prothrombin Time 19.6 SEC (9.4-11.4) H Prothrombin Time INR 1.9 (0.9-1.1) H Sodium Level 128 mmol/L (136-145) L Potassium Level 6.7 mmol/L (3.5-5.1) *H Chloride Level 100 mmol/L (98-107) Carbon Dioxide Level 21 mmol/L (21-32) Anion Gap 7 (6-14) Blood Urea Nitrogen 32 mg/dL (8-26) H Creatinine 2.9 mg/dL (0.7-1.3) H Estimated GFR (Cockcroft-Gault) 21.7 BUN/Creatinine Ratio 11 (6-20) Glucose Level 145 mg/dL (70-99) H Lactic Acid Level 2.2 mmol/L (0.4-2.0) H Calcium Level 7.1 mg/dL (8.5-10.1) L Phosphorus Level 4.3 mg/dL (2.6-4.7) Magnesium Level 1.2 mg/dL (1.8-2.4) L Total Bilirubin 1.1 mg/dL (0.2-1.0) H Aspartate Amino Transferase (AST) 29 U/L (15-37) Alanine Aminotransferase (ALT) 10 U/L (16-63) L Alkaline Phosphatase 99 U/L (46-116) Creatine Kinase 84 U/L (39-308) Creatine Kinase MB (Mass) 4.7 ng/mL (0.0-3.6) H Creatine Kinase MB Relative Index 5.6 % (0-4) H Troponin I Quantitative 0.018 ng/mL (0-0.055) XX-Bhw-W-Type Natriuretic Peptide 1643 pg/mL (0-124) H Total Protein 4.1 g/dL (6.4-8.2) L Albumin 1.8 g/dL (3.4-5.0) L Albumin/Globulin Ratio 0.8 (1.0-1.7) L EKG EKG [EKG interpreted by me. EKG at 1706 showed normal sinus rhythm at rate of 77, abnormal left axis deviation, left anterior vascular block, right ventricular hypertrophy, no acute ST-T abnormality] Radiology/Procedures Radiology/Procedures Chest x-ray was unremarkable[] Course & Med Decision Making Course & Med Decision Making Pertinent Labs and Imaging studies reviewed. (See chart for details) Evaluation of patient in ER showed 66-year-old male patient with history of multiple medical problems and previous pancreatic cancer seen by his cancers physician and refused admission at [facility] and presented to this emergency room. Patient had potassium of 6.8 and treated with several medication. Patient had elevation of lactic acid at 2.2 and elevation of BUN/creatinine. IV fluids and antibiotics was started. Dr. Villarreal consulted at 1758 and accepted admission and plan to taking care of patient and hyperkalemia . Dragon Disclaimer Dragon Disclaimer This electronic medical record was generated, in whole or in part, using a voice recognition dictation system. Departure Departure: Impression: Primary Impression: Hyperkalemia Additional Impressions: Elevated lactic acid level Renal insufficiency Dehydration Hyponatremia Anemia History of pancreatic cancer Colostomy in place Disposition: ADMITTED INPATIENT (At 1800) Admitting Physician: Jesús Villarreal Condition: IMPROVED Referrals: JESÚS VILLARREAL MD (PCP) Critical Care Time Critical care time was [70] minutes exclusive of procedures. Problem Qualifiers PRISCILA TOLENTINO MD Feb 24, 2017 18:13
[2017-02-24] MEDS ORDERED: MAG HYDROX/AL HYDROX/SIMETH 30 ML ORAL.SUSP PO PRN (18:30)
[2017-02-24] MEDS ORDERED: ALBUTEROL SULFATE 8GM INHALER. IH PRN (18:30)
[2017-02-24] MEDS ORDERED: ONDANSETRON ODT 4 MG TAB.RAPDIS PO PRN (19:30)
[2017-02-24] MEDS: ALBUTEROL SULFATE 2.5 MG/3 ML NEBU. NEB SCH (20:00)
[2017-02-24 20:27] VITALS: BP 98/58
--- NOTE | 2017-02-24 20:39 | HP ---
ADMIT DATE: 02/24/2017 HISTORY OF PRESENT ILLNESS: A 66-year-old male with history of pancreatic cancer, apparently had an elevated potassium, was down at , refused to be admitted there, wanted to be admitted up here. The patient complained of generalized weakness without fever, nausea, or vomiting. No focal neurological problems. Denies any chest pain or shortness of breath. As a result of this, the patient was admitted to the hospital for hyperkalemia and continued IV antibiotic therapy for his chronic cellulitis to his legs. PAST MEDICAL HISTORY: Pancreatic cancer, type 2 diabetes, chronic lymphedema with cellulitis to the legs, chronic back pain, history of pneumonia, tonsillitis, tonsillectomy, open heart surgery, hypercholesterolemia, sleep apnea, colitis, pancreatitis, cholecystectomy, Crohn's disease, abdominal surgery with colostomy, gastric bypass, colectomy, appendectomy. He has had a Whipple procedure. Rectal cyst removed. GERD, multiple urinary tract infections, with BPH, prostate problems, hematuria, urinary retention, degenerative arthritis, musculoskeletal weakness, weight loss, endocrine disorders, anemia. Pneumonia shot up-to-date. FAMILY HISTORY: Father with diabetes, mother with depression and Crohn's disease, cardiovascular disease with the mother, cardiomyopathy and pulmonary emboli with the father. ALLERGIES: The patient has no known allergies noted. HOME MEDICATIONS: Include Tylenol, ProAir inhaler 2 puffs q. 4, nebulized treatments with albuterol, aspirin 81 mg, BromSite 5 mL right eye daily, calcium carbonate, cholestyramine 4 grams daily for high potassium, cyclobenzaprine 10 mg daily, dexamethasone 3 mg p.o. t.i.d. for his cancer, dicyclomine 1 p.o. q.i.d., Colace, doxycycline 100 mg b.i.d., furosemide 20 mg a day, gemfibrozil 600 mg b.i.d., glyburide 5 mg a day, magnesium chloride 64 mg a day, magnesium oxide, Maalox p.r.n., morphine sulfate 15 mg one 4 times a day p.r.n. Vigamox 1 drop each eye t.i.d., Prilosec 20 mg a day, Zofran ODT 8 mg q. 6 hours p.r.n., prednisolone acetate 5 mL drops one drop right eye t.i.d., Flomax 0.4 mg daily, trazodone 50 mg at bedtime, vancomycin per pharmacy, ferrous sulfate 325 daily, ____ 160 mg daily. SOCIAL HISTORY: The patient is a former smoker, has not smoked in a few years now as well as had a 40-50 pack year history of smoking, quit about a year ago. Denies alcohol or drug use. The patient has no known drug allergies. REVIEW OF SYSTEMS: Increased shortness of breath and weakness. Denies chest pain, abdominal pain presently except for his pancreatic cancer of course. He has chronic pain there. The patient does have massive swelling to his lower extremities with erythema consistent with his history of chronic lymphedema as well as that of cellulitis. PHYSICAL EXAMINATION: GENERAL: This is a pleasant white male, looking somewhat older than stated age. Otherwise, frail-appearing white male, in no apparent distress. VITAL SIGNS: Blood pressure that of 112/80, pulse 122, temperature 97.7, oxygenation 94% on 3 liters. HEENT: The patient's head was atraumatic, normocephalic. Eyes: PERRLA without jaundice. Mouth and throat: Poor dentition. NECK: Supple, without JVD or carotid bruits. No thyromegaly. LUNGS: Diminished, poor movement of air, some musculoskeletal atrophy from poor nutrition. CARDIOVASCULAR: Regular sinus rhythm. ABDOMEN: Soft, diffuse tenderness. Colostomy bag in place. Bowel sounds present. EXTREMITIES: No clubbing or cyanosis. Edema noted +2 with marked erythema noted to the legs consistent with the cellulitis. Pulses noted to be decreased 1/4. NEUROLOGIC: The patient alert and oriented x 3. LABORATORY DATA: Hemoglobin 7.5 and 22, platelets 135, slightly low. Chemistry showed potassium 6.7. Sodium of 128. Lactic acid of 2.2. He is on vancomycin. BUN and creatinine elevated at 32 and 2.9. Pharmacy to follow his vancomycin with his decreased renal function and the like. Otherwise, his urine was basically unremarkable. The patient's chest x-ray was unremarkable. IMPRESSION AND PLAN: Sepsis, hyperkalemia, pancreatic cancer, chronic kidney disease stage 3, moderate to severe protein malnutrition. The patient to be monitored carefully, get his potassium down. We will continue on vancomycin and make further evaluation on him as indicated per those results. May add a second antibiotic as well. MARCE WARREN MD DR: Rosalino JOB#: [id number] / [id number]
[2017-02-24] MEDS: IV NORMAL SALINE 1,000ML 1,000 ML IV SCH (20:41)
[2017-02-24] MEDS ORDERED: DOXYCYCLINE HYCLATE 100 MG TABLET PO SCH (21:00)
[2017-02-24] MEDS ORDERED: VANCOMYCIN PER PHARMACY MC PRN (21:15)
[2017-02-24 21:29] LABS: % LYMPHS 13 % (24-48); % METAS 2 % (0-0); % MONOS 5 % (0-10); % SEGS 80 % (35-66); OVALOCYTES OCC; PLT ESTIMATE ADEQUATE (ADEQUATE); SCHISTOCYTES OCC; TOXIC GRANULATION SLIGHT
[2017-02-24 21:30] LABS: POLYCHROMASIA SLIGHT
[2017-02-24] MEDS ORDERED: ALBUTEROL SULFATE 2.5 MG/3 ML NEBU. NEB PRN (21:30)
[2017-02-24] MEDS ORDERED: VANCOMYCIN 1.75 GM in IV NORMAL SALINE 500ML 500 ML IV ONE (21:30)
[2017-02-24] MEDS: GEMFIBROZIL 600 MG TABLET. PO SCH (21:49)
[2017-02-24] MEDS: glyBURIDE 5 MG TABLET PO SCH (21:50)
[2017-02-24] MEDS: prednisoLONE ACETATE 1% OPHTH SUSPENSION 5ML BOTTLE. OD SCH (21:50)
[2017-02-24] MEDS: DEXAMETHASONE 4 MG TABLET PO SCH (21:50)
[2017-02-24] MEDS: KETOROLAC TROMETHAMINE 0.5% OPHTH SOLUTION 3ML BOTTLE. OD SCH (21:50)
[2017-02-24] MEDS: MOXIFLOXACIN 0.5% OPHTH SOLUTION 3ML BOTTLE. OU SCH (21:50)
[2017-02-24] MEDS: traZODone 50 MG TABLET. PO SCH (21:50)
[2017-02-24] MEDS: DICYCLOMINE HCL 20 MG TABLET PO SCH (21:50)
[2017-02-24] MEDS: LACTOBACILLUS RHAMNOSUS GG 1 CAPSULE. PO SCH (21:50)
[2017-02-24 23:31] VITALS: BP 96/51
[2017-02-25] MEDS: IV NORMAL SALINE 1,000ML 1,000 ML IV SCH ×2 (03:53→13:42)
[2017-02-25 05:35] VITALS: BP 119/62
[2017-02-25 06:35] LABS: BASO % 0 % (0-3); EOS % 0 % (0-3); HEMATOCRIT 22.1 % (39.0-53.0); HEMOGLOBIN 7.7 g/dL (13.0-17.5); LYMPH # 0.2 x10^3/uL (1.0-4.8); LYMPH % 4 % (24-48); MEAN CORPUSCULAR HEMOGLOBIN 40 pg (25-35); MEAN CORPUSCULAR HGB CONC 35 g/dL (31-37); MEAN CORPUSCULAR VOLUME 115 fL (79-100); MONO # 0.1 x10^3/uL (0.0-1.1); MONO % 2 % (0-9); NEUT # 4.8 x10^3uL (1.8-7.7); NEUT % 94 % (31-73); PLATELET COUNT 108 x10^3/uL (140-400); RED BLOOD COUNT 1.91 x10^6/uL (4.30-5.70); RED CELL DISTRIBUTION WIDTH 21.2 % (11.5-14.5); WHITE BLOOD COUNT 5.1 x10^3/uL (4.0-11.0)
[2017-02-25 06:45] LABS: ALBUMIN 1.5 g/dL (3.4-5.0); ALBUMIN/GLOBULIN RATIO 0.7 (1.0-1.7); CALCIUM 6.8 mg/dL (8.5-10.1); CREATININE 2.5 mg/dL (0.7-1.3); GFR 25.8; TOTAL BILIRUBIN 0.8 mg/dL (0.2-1.0); TOTAL PROTEIN 3.6 g/dL (6.4-8.2)
[2017-02-25] MEDS: ALBUTEROL SULFATE 2.5 MG/3 ML NEBU. NEB SCH ×3 (08:00→20:04)
[2017-02-25] MEDS: KETOROLAC TROMETHAMINE 0.5% OPHTH SOLUTION 3ML BOTTLE. OD SCH ×3 (08:39→21:00)
[2017-02-25] MEDS: MOXIFLOXACIN 0.5% OPHTH SOLUTION 3ML BOTTLE. OU SCH ×4 (08:39→21:00)
[2017-02-25] MEDS: prednisoLONE ACETATE 1% OPHTH SUSPENSION 5ML BOTTLE. OD SCH ×4 (08:39→21:00)
[2017-02-25] MEDS: FLUTICASONE 50MCG/NASAL SPRAY 16GM BOTTLE. NS SCH (08:39)
[2017-02-25] MEDS: MAGNESIUM CHLORIDE ER 64 MG TABLET.ER PO SCH (08:40)
[2017-02-25] MEDS: DICYCLOMINE HCL 20 MG TABLET PO SCH ×4 (08:40→21:11)
[2017-02-25] MEDS: GEMFIBROZIL 600 MG TABLET. PO SCH ×2 (08:40→21:11)
[2017-02-25] MEDS: FENOFIBRATE NANOCRYSTALLIZED 145 MG TABLET PO SCH (08:40)
[2017-02-25] MEDS: ASPIRIN 81 MG TAB.CHEW PO SCH (08:40)
[2017-02-25] MEDS: LACTOBACILLUS RHAMNOSUS GG 1 CAPSULE. PO SCH ×2 (08:40→21:11)
[2017-02-25] MEDS: CALCIUM CARB/VIT D3 500/200 TABLET PO SCH ×2 (08:40→17:37)
[2017-02-25] MEDS: TAMSULOSIN 0.4 MG CAP.ER.24H. PO SCH (08:40)
[2017-02-25] MEDS: PANTOPRAZOLE 40 MG TABLET. PO SCH (08:40)
[2017-02-25] MEDS: DEXAMETHASONE 4 MG TABLET PO SCH ×3 (08:41→21:11)
[2017-02-25] MEDS: DOCUSATE SODIUM 100 MG CAPSULE PO SCH (08:41)
[2017-02-25] MEDS: FUROSEMIDE 20 MG TABLET PO SCH (08:41)
[2017-02-25] MEDS: ACETAMINOPHEN 325 MG TABLET PO PRN ×2 (08:49→14:58)
[2017-02-25] MEDS: MORPHINE IR 15 MG TABLET PO PRN ×2 (08:49→14:58)
[2017-02-25] MEDS ORDERED: SOD CHLORIDE IV SCH (09:00)
[2017-02-25] MEDS ORDERED: VANCOMYCIN IV SCH (09:00)
[2017-02-25] MEDS ORDERED: CHOLESTYRAMINE/ASPARTAME 4 GM PACKET PO SCH (09:00)
[2017-02-25 11:30] VITALS: BP 98/60
[2017-02-25] MEDS: FERROUS SULFATE 325 MG TABLET. PO SCH (12:16)
[2017-02-25] MEDS: CHOLESTYRAMINE/ASPARTAME 4 GM PACKET PO SCH ×2 (13:43→21:11)
[2017-02-25 15:37] VITALS: BP 91/54
[2017-02-25] MEDS ORDERED: DEXTROSE 50% 25 GM / 50ML DISP.SYRIN. IV PRN (17:15)
[2017-02-25] MEDS ORDERED: INSULIN ASPART 300 UNITS/3 ML INSULN.PEN SQ ONE (17:30)
--- NOTE | 2017-02-25 20:01 | PN ---
DATE: 02/25/2017 SUBJECTIVE: A 66-year-old gentleman with cellulitis to the legs, sepsis, hyperkalemia. The patient's potassium has not come down much despite the use of Kayexalate. However, we will still increase that and see if we cannot get the potassium down. Sodium is up to 133 from 128. His lactic acid has come down from 3.7 down to 1.4. His albumin is low at 1.5, needs additional protein supplementation there. PHYSICAL EXAMINATION: GENERAL: The patient otherwise is resting fairly comfortably. He says his pain is better controlled. VITAL SIGNS: Blood pressure 120/60, respiratory rate 18, pulse 90, afebrile. HEENT: The patient's head was atraumatic, normocephalic. Eyes: PERRLA without jaundice. Mouth and throat: Normal. NECK: Supple. LUNGS: Diminished throughout, but clear than they have been. CARDIOVASCULAR: Regular sinus rhythm. ABDOMEN: Soft, nontender. EXTREMITIES: Legs show still erythema and puffiness, but markedly improved from where they were, so he is improving overall with his situation there. IMPRESSION: Therefore, sepsis, hyperkalemia, pancreatic cancer, chronic kidney disease stage 3, moderate to severe protein malnutrition. Continue on vancomycin and Levaquin, increased nutritional supplementation. MARCE WARREN MD DR: HERB/hernan JOB#: [id number] / [id number]
[2017-02-25 20:05] VITALS: BP 101/51
[2017-02-25] MEDS: INSULIN DETEMIR 300 UNITS/3 ML INSULN.PEN. SQ SCH (21:10)
[2017-02-25] MEDS: CYCLOBENZAPRINE 10 MG TABLET. PO PRN (21:11)
[2017-02-25] MEDS: glyBURIDE 5 MG TABLET PO SCH (21:11)
[2017-02-25] MEDS: traZODone 50 MG TABLET. PO SCH (21:11)
[2017-02-25 23:27] VITALS: BP 95/57
[2017-02-26] VITALS (11 sets, daily range): BP systolic 11–120; BP diastolic 56–66
[2017-02-26] MEDS: KETOROLAC TROMETHAMINE 0.5% OPHTH SOLUTION 3ML BOTTLE. OD SCH (07:08)
[2017-02-26] MEDS: prednisoLONE ACETATE 1% OPHTH SUSPENSION 5ML BOTTLE. OD SCH (07:08)
[2017-02-26] MEDS: MOXIFLOXACIN 0.5% OPHTH SOLUTION 3ML BOTTLE. OU SCH (07:08)
[2017-02-26] MEDS: INSULIN ASPART 300 UNITS/3 ML INSULN.PEN SQ SCH ×3 (07:30→16:38)
[2017-02-26] MEDS: TAMSULOSIN 0.4 MG CAP.ER.24H. PO SCH (08:58)
[2017-02-26] MEDS: DICYCLOMINE HCL 20 MG TABLET PO SCH ×4 (08:58→21:07)
[2017-02-26] MEDS: FERROUS SULFATE 325 MG TABLET. PO SCH (08:59)
[2017-02-26] MEDS: FENOFIBRATE NANOCRYSTALLIZED 145 MG TABLET PO SCH (08:59)
[2017-02-26] MEDS: MAGNESIUM CHLORIDE ER 64 MG TABLET.ER PO SCH (08:59)
[2017-02-26] MEDS: CHOLESTYRAMINE/ASPARTAME 4 GM PACKET PO SCH ×2 (08:59→14:00)
[2017-02-26] MEDS: FUROSEMIDE 20 MG TABLET PO SCH (08:59)
[2017-02-26] MEDS: PANTOPRAZOLE 40 MG TABLET. PO SCH (08:59)
[2017-02-26] MEDS: CALCIUM CARB/VIT D3 500/200 TABLET PO SCH ×2 (08:59→17:13)
[2017-02-26] MEDS: DOCUSATE SODIUM 100 MG CAPSULE PO SCH (08:59)
[2017-02-26] MEDS: LACTOBACILLUS RHAMNOSUS GG 1 CAPSULE. PO SCH ×2 (08:59→21:07)
[2017-02-26] MEDS: GEMFIBROZIL 600 MG TABLET. PO SCH (08:59)
[2017-02-26] MEDS: DEXAMETHASONE 4 MG TABLET PO SCH (09:00)
[2017-02-26] MEDS: ASPIRIN 81 MG TAB.CHEW PO SCH (09:00)
[2017-02-26] MEDS: FLUTICASONE 50MCG/NASAL SPRAY 16GM BOTTLE. NS SCH (09:03)
[2017-02-26] MEDS: INSULIN DETEMIR 300 UNITS/3 ML INSULN.PEN. SQ SCH ×2 (09:04→21:05)
[2017-02-26 10:01] LABS: CALCIUM 7.1 mg/dL (8.5-10.1); CREATININE 2.7 mg/dL (0.7-1.3); GFR 23.6
[2017-02-26 10:10] LABS: POTASSIUM 6.9 mmol/L (3.5-5.1)
[2017-02-26] MEDS: ALBUTEROL SULFATE 2.5 MG/3 ML NEBU. NEB SCH ×3 (10:48→20:03)
[2017-02-26] MEDS ORDERED: DEXTROSE 50% 25 GM / 50ML DISP.SYRIN. IV ONE ×3 (11:00→19:30)
[2017-02-26] MEDS ORDERED: INSULIN REGULAR 100 UNIT/ML 10ML VIAL. IV ONE ×4 (11:00→21:15)
[2017-02-26] MEDS ORDERED: CALCIUM GLUCONATE 1,000 MG in IV NORMAL SALINE 100ML 100 ML IV ONE (11:00)
--- NOTE | 2017-02-26 11:10 | EKG ---
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
[2017-02-26] MEDS: IV DEXTROSE 5% - 0.9 % NACL 1,000 ML IV SCH ×2 (12:02→21:19)
[2017-02-26] MEDS ORDERED: SODI15OR2 PO (19:34)
[2017-02-26] MEDS: SODIUM POLYSTYRENE SULFONATE 15 GM/60 ML ORAL.SUSP. PO SCH (19:51)
[2017-02-26] MEDS: glyBURIDE 5 MG TABLET PO SCH (21:07)
[2017-02-26] MEDS: traZODone 50 MG TABLET. PO SCH (21:07)
[2017-02-26] MEDS: NEOMYCIN/BACITRAC/POLY TOPICAL OINTMENT 28GM TUBE. TP SCH (21:08)
[2017-02-26] MEDS ORDERED: FUROSEMIDE 20 MG/2 ML VIAL IVP ONE (21:15)
[2017-02-26] MEDS ORDERED: VANCOMYCIN 1 GM in IV NORMAL SALINE 250ML 250 ML IV SCH (21:30)
[2017-02-27] VITALS (24 sets, daily range): BP systolic 88–116; BP diastolic 53–73
--- NOTE | 2017-02-27 00:24 | PN ---
DATE: SUBJECTIVE: A 66-year-old gentleman with history of multiple medical problems including pancreatic cancer, receiving chemotherapy and antibiotics for his legs or his hand cellulitis. The patient has been battling an elevated potassium, which has actually gone up despite the use of cholestyramine, the patient was also anemic with hemoglobin of 7 and platelets are low thrombocytopenia. The patient's INR is 1.9, potassium went up to 6.9. As a result of this, he was transferred from the floor today to the ICU for close monitoring and protocol there, he will be given D5 normal saline, he had a sodium up from 129. He will be using insulin as well as albuterol treatments to bring down the potassium and will repeat this potassium later this evening and make further evaluation to see if any more aggressive therapy was needed. The patient's EKG was obtained and reviewed. We will consult with Cardiology, make further evaluation, but are trying to get his potassium down, Kayexalate was being mixed with orange juice as well and consequently he was placed on a low potassium diet and not to use the orange juice to mix with Kayexalate. We will consult Cardiology for the abnormal EKG, he was transferred over here to the ICU for further evaluation. OBJECTIVE: GENERAL: The patient otherwise is alert and oriented x 3. Speech fluent, spontaneous, appropriate, does not seem to have any ill effects. VITAL SIGNS: Blood pressure 120/60, respiratory rate 16, pulse 90. He is afebrile, 4 liters 97%. GENERAL: The patient is alert and oriented. LUNGS: Basically diminished, but clear. CARDIOVASCULAR: Regular sinus rhythm. ABDOMEN: Soft, nontender. EXTREMITIES: Legs bandaged and receiving IV vancomycin for that situation with cellulitis to his legs there. We will continue to monitor him accordingly. Make further evaluation on him for those results. IMPRESSION: Hyperkalemia, hyponatremia, pancreatic cancer, cellulitis of the legs, [id number] protein malnutrition. PLAN: As above. MARCE WARREN MD DR: HERB/hernan JOB#: [id number] / [id number]
[2017-02-27] MEDS: ALBUTEROL SULFATE 2.5 MG/3 ML NEBU. NEB SCH ×4 (04:51→20:13)
[2017-02-27 05:54] LABS: CALCIUM 7.2 mg/dL (8.5-10.1); CREATININE 2.7 mg/dL (0.7-1.3); GFR 23.6
[2017-02-27] MEDS ORDERED: FUROSEMIDE 40 MG/4 ML VIAL IVP ONE (07:15)
[2017-02-27] MEDS: INSULIN ASPART 300 UNITS/3 ML INSULN.PEN SQ SCH ×3 (07:30→17:20)
[2017-02-27] MEDS: INSULIN DETEMIR 300 UNITS/3 ML INSULN.PEN. SQ SCH ×2 (08:24→21:20)
[2017-02-27] MEDS: ASPIRIN 81 MG TAB.CHEW PO SCH (08:26)
[2017-02-27] MEDS: FLUTICASONE 50MCG/NASAL SPRAY 16GM BOTTLE. NS SCH (08:26)
[2017-02-27] MEDS: PANTOPRAZOLE 40 MG TABLET. PO SCH (08:26)
[2017-02-27] MEDS: TAMSULOSIN 0.4 MG CAP.ER.24H. PO SCH (08:26)
[2017-02-27] MEDS: DEXAMETHASONE 4 MG TABLET PO SCH (08:27)
[2017-02-27] MEDS: DOCUSATE SODIUM 100 MG CAPSULE PO SCH (08:27)
[2017-02-27] MEDS: MAGNESIUM CHLORIDE ER 64 MG TABLET.ER PO SCH (08:27)
[2017-02-27] MEDS: SODIUM POLYSTYRENE SULFONATE 15 GM/60 ML ORAL.SUSP. PO SCH ×4 (08:27→20:58)
[2017-02-27] MEDS: LACTOBACILLUS RHAMNOSUS GG 1 CAPSULE. PO SCH (08:27)
[2017-02-27] MEDS: NEOMYCIN/BACITRAC/POLY TOPICAL OINTMENT 28GM TUBE. TP SCH ×2 (08:28→20:58)
[2017-02-27] MEDS: FERROUS SULFATE 325 MG TABLET. PO SCH (08:28)
[2017-02-27] MEDS: FENOFIBRATE NANOCRYSTALLIZED 145 MG TABLET PO SCH (08:28)
[2017-02-27] MEDS: DICYCLOMINE HCL 20 MG TABLET PO SCH (08:32)
[2017-02-27] MEDS: FUROSEMIDE 20 MG TABLET PO SCH (09:00)
--- NOTE | 2017-02-27 10:09 | PDOC2 ---
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 He reports cough and chest congestion that has been ongoing for about a week that prompted him to present for evaluation. In the ED he was found to have a significantly elevated potassium. He currently follows and receives chemotherapy via [facility] but apparently declined transfer. He was admitted tot he ICU for management of the elevated potassium. He was then noted to have an abnormal EKG so consult was called. He is currently resting quietly but wakens easily. He denies any chest pain or discomfort, he denies any prior cardiac issues or testing. He denies dyspnea. He reports a wee of coughing with sputum production, denies fever or chills. He denies palpitations, lightheadedness or syncope. Past Medical History Pancreatic cancer, type 2 diabetes, chronic lymphedema with cellulitis to the legs, chronic back pain, pneumonia, tonsillitis, hypercholesterolemia, sleep apnea, colitis, pancreatitis,Crohn's disease, GERD, multiple urinary tract infections, with BPH, prostate problems, hematuria, urinary retention, degenerative arthritis, musculoskeletal weakness, weight loss Past Surgical History tonsillectomy, open heart surgery, cholecystectomy, abdominal surgery with colostomy, gastric bypass, colectomy, appendectomy and Whipple procedure. Rectal cyst removed. Family History diabetes, depression, Crohn's disease, heart disease in his mother, cardiomyopathy and pulmonary emboli in his father. Social History prior smoker, quit in 2003, denies ETOH or drugs Current Medications Current Medications Sodium Chloride 1,000 ml @ 1,000 mls/hr 1X ONCE IV Last administered on 02/24t 17:40; Start 02/24/17 at 17:45; Stop 02/24/17 at 18:44; Status DC Albuterol Sulfate (Ventolin) 10 mg 1X ONCE CONT NEB Last administered on 02/24 17:55; Start 02/24/17 at 17:45; Stop 02/24/17 at 17:47; Status DC Sodium Bicarbonate 50 meq 1X ONCE IV Last administered on 02/24/17 18:18; Start 02/24/17 at 17:45; Stop 02/24/17 at 17:47; Status DC Sodium Polystyrene Sulfonate (Kayexalate) 15 gm 1X ONCE PO Last administered on 02/24/17 18:18; Start 02/24/17 at 17:45; Stop 02/24/17 at 17:47; Status DC Insulin Human Regular (NovoLIN R) 10 unit 1X ONCE IV Last administered on 18:19; Start 02/24/17 at 17:45; Stop 02/24/17 at 17:47; Status DC Dextrose 25 gm 1X ONCE IV Last administered on 02/24/17 18:18; Start at 17:45; Stop 02/24/17 at 17:47; Status DC Ceftriaxone Sodium 2 gm/ Sodium Chloride 100 ml @ 200 mls/hr 1X ONCE IV Last administered on 02/24/17 18:17; Start 02/24/17 at 18:00; Stop 02/24/17 at 18 :29; Status DC Ondansetron HCl (Zofran) 4 mg PRN Q4HRS PRN IV NAUSEA/VOMITING Last administered on 02/24/17 18:20; Start 02/24/17 at 18:00; Stop 02/25/17 at 17 :59; Status DC Sodium Chloride 1,000 ml @ 100 mls/hr Q10H IV Last administered on 02/25/17 13:42; Start 02/24/17 at 18:00; Stop 02/25/17 at 17:59; Status DC Sodium Chloride 1,000 ml @ 1,000 mls/hr 1X ONCE IV Last administered on 02/24 20:44; Start 02/24/17 at 18:15; Stop 02/24/17 at 19:14; Status DC Ceftriaxone Sodium (Rocephin) 2 gm STK-MED ONCE IV ; Start 02/24/17 at 18:12; Stop 02/24/17 at 18:13; Status DC Sodium Chloride 100 ml @ As Directed STK-MED ONCE .ROUTE ; Start 02/24/17 at 18:12; Stop 02/24/17 at 18:13; Status DC Sodium Chloride 100 ml @ As Directed STK-MED ONCE .ROUTE ; Start 02/24/17 at 18:14; Stop 02/24/17 at 18:15; Status DC Acetaminophen (Tylenol) 325 mg PRN Q4HRS PRN PO PAIN/TEMP Last administered on 02/25/17 14:58; Start 02/24/17 at 18:30 Albuterol Sulfate (Ventolin) 2.5 mg RTBID NEB Last administered on 02/25/17 20:04; Start 02/24/17 at 20:00; Stop 02/26/17 at 10:28; Status DC Albuterol Sulfate (Ventolin Hfa) 2 puff Q4HRS PRN IH soa; Start 02/24/17 at 18 :30; Stop 02/24/17 at 21:24; Status DC Aspirin (Children'S Aspirin) 81 mg DAILY PO Last administered on 02/27/17 08: 26; Start 02/25/17 at 09:00 Calcium/Vitamin D (Oscal D 500mg/ 200uts) 1 tab BIDWMEALS PO Last administered on 02/26/17 17:13; Start 02/25/17 at 08:00; Stop 02/26/17 at 20:11; Status DC Cholestyramine Resin (Questran Light) 4 gm DAILY PO Last administered on 08:40; Start 02/25/17 at 09:00; Stop 02/25/17 at 10:15; Status DC Cyclobenzaprine HCl (Flexeril) 10 mg PRN DAILY PRN PO PRN Last administered on 02/25/17 21:11; Start 02/24/17 at 18:30 Dexamethasone (Decadron) 3 mg TID PO Last administered on 02/26/17 09:00; Start 02/24/17 at 21:00; Stop 02/26/17 at 10:20; Status DC Dicyclomine HCl (Bentyl) 20 mg QID PO Last administered on 02/27/17 08:32; Start 02/24/17 at 21:00 Docusate Sodium (Colace) 100 mg DAILY PO Last administered on 02/27/17 08:27 ; Start 02/25/17 at 09:00 Doxycycline Hyclate (Vibra-Tab) 100 mg BID PO ; Start 02/24/17 at 21:00; Stop 02/24/17 at 21:09; Status DC Fluticasone Propionate (Flonase) 1 spray DAILY NS Last administered on 08:26; Start 02/25/17 at 09:00 Furosemide (Lasix) 20 mg DAILY PO Last administered on 02/26/17 08:59; Start 02/25/17 at 09:00 Gemfibrozil (Lopid) 600 mg BID PO Last administered on 02/26/17 08:59; Start 02/24/17 at 21:00; Stop 02/26/17 at 20:11; Status DC Glyburide (Diabeta) 5 mg HS PO Last administered on 02/26/17 21:07; Start at 21:00 Lactobacillus Rhamnosus (Culturelle) 1 cap BID PO Last administered on 08:27; Start 02/24/17 at 21:00 Al Hydroxide/Mg Hydroxide (Mylanta Plus Xs) 30 ml PRN Q2HR PRN PO DYSPEPSIA; Start 02/24/17 at 18:30 Morphine Sulfate (Morphine Ir) 15 mg PRN QID PRN PO PAIN Last administered on 02/25/17 14:58; Start 02/24/17 at 18:30 Moxifloxacin HCl (Vigamox) 1 drop TID OU Last administered on 02/24/17 21:50 ; Start 02/24/17 at 21:00; Stop 02/26/17 at 13:39; Status DC Prednisolone Acetate (Pred Forte) 1 drop TID OD Last administered on 21:50; Start 02/24/17 at 21:00; Stop 02/26/17 at 13:39; Status DC Tamsulosin HCl (Flomax) 0.4 mg DAILY08 PO Last administered on 02/27/17 08:26 ; Start 02/25/17 at 08:00 Trazodone HCl (Desyrel) 50 mg QHS PO Last administered on 02/26/17 21:07; Start 02/24/17 at 21:00 Ketorolac Tromethamine (Acular) 1 drop BID OD Last administered on 02/24/17 21:50; Start 02/24/17 at 21:00; Stop 02/25/17 at 14:29; Status DC Magnesium Chloride (Mag Delay) 64 mg DAILY PO Last administered on 02/27/17 08:27; Start 02/25/17 at 09:00 Pantoprazole Sodium (Protonix) 40 mg DAILYAC PO Last administered on 08:26; Start 02/25/17 at 07:30 Ondansetron HCl (Zofran Odt) 8 mg PRN Q6HRS PRN PO NAUSEA/VOMITING; Start at 19:30 Non-Formulary Medication 1 gm DAILY IV ; Start 02/25/17 at 09:00; Stop at 09:00; Status DC Ferrous Sulfate (Feosol) 325 mg DAILYBFRLUN PO Last administered on 02/27/17 08:28; Start 02/25/17 at 11:30 Fenofibrate (Tricor) 145 mg DAILY PO Last administered on 02/27/17 08:28; Start 02/25/17 at 09:00 Levofloxacin/ Dextrose 150 ml @ 150 mls/hr QODAY IV Last administered on 02/26 09:03; Start 02/24/17 at 19:30 Vancomycin HCl 1.75 gm/Sodium Chloride 500 ml @ 250 mls/hr 1X ONCE IV Last administered on 02/24/17 21:43; Start 02/24/17 at 21:30; Stop 02/24/17 at 23 :29; Status DC Vancomycin HCl 1 gm/Sodium Chloride 250 ml @ 250 mls/hr Q48H IV Last administered on 02/26/17 21:41; Start 02/26/17 at 21:30 Vancomycin HCl (Vanco Per Pharmacy) 1 each PRN DAILY PRN MC SEE COMMENTS Last administered on 02/24/17 21:24; Start 02/24/17 at 21:15 Albuterol Sulfate (Ventolin) 2.5 mg PRN Q4HRS PRN NEB SHORTNESS OF BREATH; Start 02/24/17 at 21:30 Vancomycin HCl 1 each 1X ONCE MC ; Start 02/28/17 at 21:00; Stop 02/28/17 at 21:01 Cholestyramine Resin (Questran Light) 4 gm TID PO Last administered on 14:00; Start 02/25/17 at 14:00; Stop 02/26/17 at 20:11; Status DC Ketorolac Tromethamine (Acular) 1 drop BID OD ; Start 02/25/17 at 14:29; Stop 02/26/17 at 13:39; Status DC Insulin Detemir (Levemir) 20 units BID SQ Last administered on 02/27/17 08:24 ; Start 02/25/17 at 21:00 Insulin Aspart (NovoLOG) 20 units 1X ONCE SQ Last administered on 02/25/17 17:42; Start 02/25/17 at 17:30; Stop 02/25/17 at 17:31; Status DC Insulin Aspart (NovoLOG) 0-7 UNITS TIDBFRMEAL SQ Last administered on 16:38; Start 02/26/17 at 07:30 Dextrose 12.5 gm PRN Q15MIN PRN IV SEE COMMENTS; Start 02/25/17 at 17:15 Dexamethasone (Decadron) 3 mg DAILY PO Last administered on 02/27/17 08:27; Start 02/27/17 at 09:00 Albuterol Sulfate (Ventolin) 2.5 mg RTQID NEB Last administered on 02/27/17 04:51; Start 02/26/17 at 12:00 Calcium Gluconate 1000 mg/Sodium Chloride 110 ml @ 220 mls/hr 1X ONCE IV Last administered on 02/26/17 12:04; Start 02/26/17 at 11:00; Stop 02/26/17 at 11:29; Status DC Dextrose 25 gm 1X ONCE IV ; Start 02/26/17 at 11:00; Stop 02/26/17 at 11:01; Status DC Insulin Human Regular (NovoLIN R) 10 unit 1X ONCE IV ; Start 02/26/17 at 11:00 ; Stop 02/26/17 at 11:01; Status DC Dextrose/Sodium Chloride 1,000 ml @ 100 mls/hr Q10H IV Last administered on 21:19; Start 02/26/17 at 11:15; Stop 02/27/17 at 07:12; Status DC Neomycin/ Polymyxin/ Bacitracin (Triple Antibiotic) 1 kristin BID TP Last administered on 02/27/17 08:28; Start 02/26/17 at 21:00 Dextrose 25 gm 1X ONCE IV Last administered on 02/26/17 18:17; Start at 18:00; Stop 02/26/17 at 18:09; Status DC Insulin Human Regular (NovoLIN R) 10 unit 1X ONCE IV Last administered on 18:25; Start 02/26/17 at 18:00; Stop 02/26/17 at 18:09; Status DC Dextrose 25 gm 1X ONCE IV Last administered on 02/26/17 19:42; Start at 19:30; Stop 02/26/17 at 19:31; Status DC Insulin Human Regular (NovoLIN R) 10 unit 1X ONCE IV Last administered on 19:43; Start 02/26/17 at 19:30; Stop 02/26/17 at 19:31; Status DC Sodium Polystyrene Sulfonate (Kayexalate) 15 gm QID PO Last administered on 08:27; Start 02/26/17 at 21:00 Furosemide (Lasix) 20 mg 1X ONCE IVP Last administered on 02/26/17 21:30; Start 02/26/17 at 21:15; Stop 02/26/17 at 21:16; Status DC Insulin Human Regular (NovoLIN R) 5 unit 1X ONCE IV Last administered on 02/26 21:31; Start 02/26/17 at 21:15; Stop 02/26/17 at 21:16; Status DC Furosemide (Lasix) 40 mg 1X ONCE IVP Last administered on 02/27/17 07:31; Start 02/27/17 at 07:15; Stop 02/27/17 at 07:16; Status DC Active Scripts Active Vanco 1 Gram/250 ml-0.9% NaCl (Vancomycin/0.9 % Sod Chloride) 1 Gm/250 Ml Plast..bag 1 Gm IV DAILY 7 Days Doxycycline Hyclate 100 Mg Tablet 100 Mg PO BID 10 Days Culturelle (Lactobacillus Rhamnosus Gg) 1 Each Cap.sprink 1 Cap PO BID 10 Days Furosemide 20 Mg Tablet 1 Tab PO DAILY Mag-Al Plus Xs Suspension (Mag Hydrox/Al Hydrox/Simeth) 30 Ml Oral.susp 30 Ml PO PRN Q2HR PRN 7 Days Colace (Docusate Sodium) 100 Mg Capsule 100 Mg PO DAILY 60 Days Albuterol Sulfate Neb Soln (Albuterol Sulfate) 2.5 Mg/3 Ml Vial.neb 2.5 Mg NEB RTBID [Ferrous Sulfate] 325 MG Tablet 325 Mg PO DAILYBFRLUN Dicyclomine Hcl 20 Mg Tablet 1 Tab PO QID Zofran Odt (Ondansetron) 8 Mg Tab.rapdis 1 Tab PO Q6HRS Mag Delay (Magnesium Chloride) 64 Mg Tablet.er 64 Mg PO DAILY Calcium 500 + Vit D 200 Tablet (Calcium Carbonate/Vitamin D3) 1 Each Tablet 1 Tab PO BIDWMEALS Reported Kionex (Sodium Polystyrene Sulfonate) 15 Gm/60 Ml Oral.susp 15 Gm PO QID Bromsite (Bromfenac Sodium) 5 Ml Drops 5 Ml RIGHTEYE DAILY LAST DOSE GIVEN: DATE: TIME: NEXT DOSE DUE: DATE: TIME: Prednisolone Acetate 5 Ml Drops.susp 1 Drop RIGHTEYE TID LAST DOSE GIVEN: DATE: TIME: NEXT DOSE DUE: DATE: TIME: Vigamox (Moxifloxacin Hcl) 3 Ml Drops 1 Drop EACHEYE TID LAST DOSE GIVEN: DATE: TIME: NEXT DOSE DUE: DATE: TIME: Fluticasone Propionate Nasal Esopus (Fluticasone Propionate) 16 Gm Esopus.susp 1 Spr NS DAILY LAST DOSE GIVEN: DATE: TIME: NEXT DOSE DUE: DATE: TIME: Dexamethasone 4 Mg Tablet 3 Mg PO TID LAST DOSE GIVEN: DATE: TIME: NEXT DOSE DUE: DATE: TIME: [triglide] 160 Mg PO DAILY LAST DOSE GIVEN: DATE: TIME: NEXT DOSE DUE: DATE: TIME: Morphine Sulfate 15 Mg Tablet 1 Tab PO QID PRN LAST DOSE GIVEN: DATE: TIME: NEXT DOSE DUE: DATE: TIME: Flomax (Tamsulosin Hcl) 0.4 Mg Cap.er.24h 1 Cap PO DAILY08 LAST DOSE GIVEN: DATE: TIME: NEXT DOSE DUE: DATE: TIME: Trazodone Hcl 50 Mg Tablet 1 Tab PO QHS LAST DOSE GIVEN: DATE: TIME: NEXT DOSE DUE: DATE: TIME: Diabeta (Glyburide) 5 Mg Tablet 5 Mg PO HS LAST DOSE GIVEN: DATE: TIME: NEXT DOSE DUE: DATE: TIME: Lopid (Gemfibrozil) 600 Mg Tablet 600 Mg PO BID LAST DOSE GIVEN: DATE: TIME: NEXT DOSE DUE: DATE: TIME: Cyclobenzaprine Hcl 10 Mg Tablet 10 Mg PO DAILY PRN LAST DOSE GIVEN: DATE: TIME: NEXT DOSE DUE: DATE: TIME: Cholestyramine Light Packet (Cholestyramine/Aspartame) 4 Gm Powd.pack 4 Gm PO DAILY LAST DOSE GIVEN: DATE: TIME: NEXT DOSE DUE: DATE: TIME: Aspirin 81 Mg Tab.chew 1 Tab PO DAILY LAST DOSE GIVEN: DATE: TIME: NEXT DOSE DUE: DATE: TIME: Proair Hfa Inhaler (Albuterol Sulfate) 8.5 Gm Hfa.aer.ad 2 Puff IH DAILY PRN LAST DOSE GIVEN: DATE: TIME: NEXT DOSE DUE: DATE: TIME: Tylenol (Acetaminophen) 325 Mg Tablet 1 Tab PO PRN Q4HRS LAST DOSE GIVEN: DATE: TIME: NEXT DOSE DUE: DATE: TIME: Omeprazole 20 Mg Tablet.dr 20 Mg PO DAILY LAST DOSE GIVEN: DATE: TIME: NEXT DOSE DUE: DATE: TIME: Allergies: Coded Allergies: No Known Drug Allergies (Unverified , 05/06/13) Review of System as per HPI General: Alert, Oriented X3, Cooperative, No acute distress HEENT: Atraumatic, EOMI Lungs: Other (coarse without crackles, rhonchi or wheezing, decreased bases bilaterally) Heart: Regular rate, Normal S1, Normal S2 Abdomen: Normal bowel sounds, Soft Extremities: No cyanosis, Normal pulses, Other (2+ edema lower extremities with erythema ) Neuro: Normal speech, Strength at 5/5 X4 ext Psych/Mental Status: Mental status NL, Mood NL VITALS Vital Signs Date Time Temp Pulse Resp B/P (MAP) Pulse Ox O2 Delivery O2 Flow Rate FiO2 02/27/17 09:08 98.2 92 16 104/56 (72) 90 Nasal Cannula 3.0 Labs Laboratory Tests Test 02/25/17 12:01 02/25/17 16:24 02/25/17 16:26 02/25/17 19:47 Glucose (Fingerstick) 301 mg/dL (70-99) 420 mg/dL (70-99) 438 mg/dL (70-99) 333 mg/dL (70-99) Test 02/26/17 07:36 02/26/17 09:25 02/26/17 11:28 02/26/17 12:30 Glucose (Fingerstick) 113 mg/dL (70-99) 191 mg/dL (70-99) Sodium Level 129 mmol/L (136-145) Potassium Level 6.9 mmol/L (3.5-5.1) Chloride Level 102 mmol/L (98-107) Carbon Dioxide Level 20 mmol/L (21-32) Anion Gap 7 (6-14) Blood Urea Nitrogen 31 mg/dL (8-26) Creatinine 2.7 mg/dL (0.7-1.3) Estimated GFR (Cockcroft-Gault) 23.6 Glucose Level 131 mg/dL (70-99) Calcium Level 7.1 mg/dL (8.5-10.1) Magnesium Level 1.2 mg/dL (1.8-2.4) Nasal Screen MRSA (PCR) Negative (Negative) Test 02/26/17 14:54 02/26/17 16:34 02/26/17 17:30 02/26/17 19:00 Creatine Kinase 73 U/L (39-308) Troponin I Quantitative 0.025 ng/mL (0-0.055) Glucose (Fingerstick) 243 mg/dL (70-99) Potassium Level 6.7 mmol/L (3.5-5.1) 6.7 mmol/L (3.5-5.1) Test 02/26/17 19:33 02/26/17 20:30 02/26/17 22:40 02/27/17 05:00 Glucose (Fingerstick) 273 mg/dL (70-99) Potassium Level 6.6 mmol/L (3.5-5.1) 6.0 mmol/L (3.5-5.1) 6.0 mmol/L (3.5-5.1) Sodium Level 132 mmol/L (136-145) Chloride Level 105 mmol/L (98-107) Carbon Dioxide Level 20 mmol/L (21-32) Anion Gap 7 (6-14) Blood Urea Nitrogen 30 mg/dL (8-26) Creatinine 2.7 mg/dL (0.7-1.3) Estimated GFR (Cockcroft-Gault) 23.6 Glucose Level 132 mg/dL (70-99) Calcium Level 7.2 mg/dL (8.5-10.1) Test 02/27/17 07:22 Glucose (Fingerstick) 135 mg/dL (70-99) Images EKG - sinus rhythm, IWMI age undetermined, right bundle, non specific changes. Assessment/Plan 1. Abnormal EKG - no acute ischemic changes. CE remains indeterminate. No chest pain. check echo for LVEF and wall motion. 2. severe hyperkalemia - ? secondary to chemotherapy. mgmt per PCP 3. cellulitis, sepsis, lactic acidosis - On antibiotics, mgmt per PCP 4. hyperlipidemia - check lipids 5. diabetes mellitus - per pcp Problems: TIMMY ALVAREZ MD 02/27/17 1524: CONSULT Allergies: Coded Allergies: No Known Drug Allergies (Unverified , 05/06/13) Assessment/Plan Patient seen and examined. Agree with E BUSINESS MANAGER's assessment and plan. Abnormal EKG noted. No clinical evidence for ACS Check 2-D echo to assess LV function and rule out wall motion abnormalities Further ischemic evaluation the formal stress test could be considered as an outpatient Continue intravenous antibiotics for cellulitis and sepsis Thank you for your consultation Problems: TRUPTI GO APRN Feb 27, 2017 10:09 TIMMY ALVAREZ MD Feb 27, 2017 15:24
[2017-02-27] MEDS: DICYCLOMINE HCL 10 MG CAPSULE PO SCH ×3 (13:32→20:58)
[2017-02-27] MEDS: MORPHINE IR 15 MG TABLET PO PRN ×2 (15:15→22:02)
[2017-02-27] MEDS: glyBURIDE 5 MG TABLET PO SCH (20:58)
[2017-02-27] MEDS: traZODone 50 MG TABLET. PO SCH (20:58)
[2017-02-27] MEDS: CYCLOBENZAPRINE 10 MG TABLET. PO PRN (22:02)
[2017-02-28] VITALS (8 sets, daily range): BP systolic 80–114; BP diastolic 57–68
[2017-02-28 06:13] LABS: BASO % 0 % (0-3); EOS % 0 % (0-3); HEMATOCRIT 22.4 % (39.0-53.0); HEMOGLOBIN 7.6 g/dL (13.0-17.5); LYMPH # 0.6 x10^3/uL (1.0-4.8); LYMPH % 5 % (24-48); MEAN CORPUSCULAR HEMOGLOBIN 39 pg (25-35); MEAN CORPUSCULAR HGB CONC 34 g/dL (31-37); MEAN CORPUSCULAR VOLUME 116 fL (79-100); MONO # 1.3 x10^3/uL (0.0-1.1); MONO % 10 % (0-9); NEUT # 10.8 x10^3uL (1.8-7.7); NEUT % 85 % (31-73); PLATELET COUNT 161 x10^3/uL (140-400); RED BLOOD COUNT 1.92 x10^6/uL (4.30-5.70); WHITE BLOOD COUNT 12.7 x10^3/uL (4.0-11.0)
[2017-02-28 06:23] LABS: CALCIUM 7.3 mg/dL (8.5-10.1); CREATININE 2.7 mg/dL (0.7-1.3); GFR 23.6; POTASSIUM 4.8 mmol/L (3.5-5.1)
[2017-02-28] MEDS: ALBUTEROL SULFATE 2.5 MG/3 ML NEBU. NEB SCH ×3 (06:29→15:35)
[2017-02-28] MEDS: INSULIN ASPART 300 UNITS/3 ML INSULN.PEN SQ SCH ×2 (07:30→12:30)
--- NOTE | 2017-02-28 08:41 | CARD ---
APPROVED REPORT EXAM: Two-dimensional and M-mode echocardiogram with Doppler and color Doppler. Other Information Quality : Good INDICATION Arrhythmia 2D DIMENSIONS Left Atrium(2D)2.9 (1.6-4.0cm)IVSd1.3 (0.7-1.1cm) Aortic Root(2D)3.3 (2.0-3.7cm)LVDd4.2 (3.9-5.9cm) LVOT Diameter1.9 (1.8-2.4cm)PWd1.2 (0.7-1.1cm) LVDs2.6 (2.5-4.0cm)FS (%) 39.4 % SV56.0 mlLVEF(%)70.3 (>50%) Aortic Valve AoV Peak Lorne.188.8cm/sAoV VTI28.3cm AO Peak GR.14.3mmHgLVOT Peak Lorne.125.4cm/s LVOT VTI 21.29cmAO Mean GR.7mmHg PAUL (VMAX)1.55gx7FJG (VTI)2.21cm2 Mitral Valve MV E Qpnfvozl42.0cm/sMV DECEL [id number] MV A Etmvmpyd734.4cm/sE/A Ratio0.7 Tricuspid Valve TR P. [id number]/sRAP [id number] TR Peak Gr.[id number] LEFT VENTRICLE The left ventricle is normal size. There is mild concentric left ventricular hypertrophy. Left ventri analisa systolic function is normal. The Ejection Fraction is 60-65%. Transmitral Doppler flow pattern is Grade I-abnormal relaxation pattern. RIGHT VENTRICLE The right ventricle is mildly dilated. The right ventricular systolic function is normal. ATRIA The left atrium size is normal. The right atrium is moderately dilated. The interatrial septum is int act with no evidence for an atrial septal defect or patent foramen ovale as noted on 2-D or Doppler i maging. AORTIC VALVE The aortic valve is mildly calcified. Doppler and Color Flow revealed no significant aortic regurgita tion. There is no significant aortic valvular stenosis. MITRAL VALVE The mitral valve is calcified but opens well. There is no evidence of mitral valve prolapse. There is no mitral valve stenosis. Doppler and Color-flow revealed trace mitral regurgitation. TRICUSPID VALVE The tricuspid valve is normal in structure. Doppler and Color Flow revealed moderate tricuspid regurg itation. There is severe pulmonary hypertension. The PA pressure was estimated at 80 mmHg. There is n o tricuspid valve prolapse or vegetation. There is no tricuspid valve stenosis. PULMONIC VALVE The pulmonary valve is normal in structure and function. Doppler and Color Flow revealed no pulmonic valvular regurgitation. There is no pulmonic valvular stenosis. GREAT VESSELS The aortic root is normal in size. The ascending aorta is normal in size. The IVC is normal in size a nd collapses >50% with inspiration. PERICARDIAL EFFUSION There is no pleural effusion. There is no evidence of significant pericardial effusion. Critical Notification Critical Value: No <Conclusion> Left ventricle systolic function is normal. The Ejection Fraction is 60-65%. Transmitral Doppler flow pattern is Grade I-abnormal relaxation pattern. Trace mitral regurgitation. Moderate tricuspid regurgitation. There is severe pulmonary hypertension. The PA pressure was estimated at 80 mmHg. There is no evidence of significant pericardial effusion.
[2017-02-28] MEDS: SODIUM POLYSTYRENE SULFONATE 15 GM/60 ML ORAL.SUSP. PO SCH ×3 (08:57→17:00)
[2017-02-28] MEDS: DOCUSATE SODIUM 100 MG CAPSULE PO SCH (08:59)
[2017-02-28] MEDS: DICYCLOMINE HCL 10 MG CAPSULE PO SCH ×2 (08:59→12:32)
[2017-02-28] MEDS: NEOMYCIN/BACITRAC/POLY TOPICAL OINTMENT 28GM TUBE. TP SCH (08:59)
[2017-02-28] MEDS: MAGNESIUM CHLORIDE ER 64 MG TABLET.ER PO SCH (08:59)
[2017-02-28] MEDS: TAMSULOSIN 0.4 MG CAP.ER.24H. PO SCH (08:59)
[2017-02-28] MEDS: ASPIRIN 81 MG TAB.CHEW PO SCH (08:59)
[2017-02-28] MEDS: FUROSEMIDE 20 MG TABLET PO SCH (08:59)
[2017-02-28] MEDS: FLUTICASONE 50MCG/NASAL SPRAY 16GM BOTTLE. NS SCH (08:59)
[2017-02-28] MEDS: PANTOPRAZOLE 40 MG TABLET. PO SCH (08:59)
[2017-02-28] MEDS: DEXAMETHASONE 4 MG TABLET PO SCH (09:00)
[2017-02-28] MEDS: INSULIN DETEMIR 300 UNITS/3 ML INSULN.PEN. SQ SCH (09:01)
[2017-02-28 09:15] LABS: % LYMPHS 7 % (24-48); % MONOS 1 % (0-10); % SEGS 92 % (35-66); NUCLEATED RBC 1; PLT ESTIMATE ADEQUATE (ADEQUATE); POLYCHROMASIA SLIGHT
[2017-02-28 09:16] LABS: POIKILOCYTOSIS SLIGHT; SCHISTOCYTES FEW
[2017-02-28 09:17] LABS: TOXIC GRANULATION SLIGHT
[2017-02-28 09:18] LABS: ANISOCYTOSIS MOD; MICROCYTOSIS SLIGHT
[2017-02-28] MEDS ORDERED: INSU100I27 SQ (11:06)
[2017-02-28] MEDS ORDERED: POLYMYXIN B TP (11:06)
[2017-02-28] MEDS ORDERED: NEOMYCIN TP (11:06)
[2017-02-28] MEDS ORDERED: BACITRACIN TP (11:06)
[2017-02-28] MEDS: FERROUS SULFATE 325 MG TABLET. PO SCH (12:31)
--- NOTE | 2017-02-28 21:13 | PN ---
DATE: 02/27/2017 SUBJECTIVE: A 66-year-old male in with cellulitis to the legs originally, but developed hyperkalemia, come down to a level 6. He is not having any abnormalities there. His BUN and creatinine remained stable at 32.7. Otherwise, the patient is feeling somewhat better overall and getting the cholestyramine. OBJECTIVE: VITAL SIGNS: Blood pressure 102/60, respiratory rate 16, pulse 99, afebrile. LUNGS: Diminished, but clear. CARDIOVASCULAR: Regular sinus rhythm. ABDOMEN: Soft, nontender. PLAN: We will continue to monitor electrolytes and make further evaluation on him as his labs for tomorrow come back. IMPRESSION: 1. Hyperkalemia. 2. Cellulitis of the legs 3. History of pancreatic cancer . MARCE WARREN MD DR: HERB/hernan JOB#: [id number] / [id number]
[2017-02-28 23:13] LABS: SODIUM, URINE <60 mmol/L (Not Estab.); UR POTASSIUM 67.6 mmol/L (Not Estab.)
== END 2017-02-28 18:48 | disposition home health service (06) | DRG 871 ==
LOC: ER 15:47 → 1 SOUTH 18:10 → ICU 02-26 12:07
PROVIDERS: ADMIT Family Medicine; ATTEND Family Medicine
DX: A41.9 Sepsis, unspecified organism (principal); E43 Unspecified severe protein-calorie malnutrition; D69.6 Thrombocytopenia, unspecified; E11.22 Type 2 diabetes mellitus with diabetic chronic kidney disease; E87.1 Hypo-osmolality and hyponatremia; E87.5 Hyperkalemia; J44.9 Chronic obstructive pulmonary disease, unspecified; N18.3 Chronic kidney disease, stage 3 (moderate); K50.90 Crohn's disease, unspecified, without complications; L03.116 Cellulitis of left lower limb; L03.115 Cellulitis of right lower limb; E86.0 Dehydration; D64.9 Anemia, unspecified; E78.00 Pure hypercholesterolemia, unspecified; E78.5 Hyperlipidemia, unspecified; G47.30 Sleep apnea, unspecified; G89.29 Other chronic pain; M19.90 Unspecified osteoarthritis, unspecified site; I12.9 Hypertensive chronic kidney disease with stage 1 through stage 4 chronic kidney disease, or unspecified chronic kidney disease; K21.9 Gastro-esophageal reflux disease without esophagitis; N40.1 Benign prostatic hyperplasia with lower urinary tract symptoms; Z81.8 Family history of other mental and behavioral disorders; Z82.49 Family history of ischemic heart disease and other diseases of the circulatory system; Z83.3 Family history of diabetes mellitus; Z85.07 Personal history of malignant neoplasm of pancreas; Z87.01 Personal history of pneumonia (recurrent); Z87.440 Personal history of urinary (tract) infections; Z87.891 Personal history of nicotine dependence; Z90.49 Acquired absence of other specified parts of digestive tract; Z93.3 Colostomy status; Z98.84 Bariatric surgery status; Z68.23 Body mass index [BMI] 23.0-23.9, adult; Z95.1 Presence of aortocoronary bypass graft
CPT/HCPCS: 36415; 71010; 80048; 80053; 80307; 81001; 82436; 82550; 82553; 82947; 83605; 83735; 83880; 84100; 84132; 84133; 84300; 84484; 85007; 85025; 85610; 87040; 87641; 93005; 93306; 94640; 94644; 96361; 96365; 96366; 96375; J0610; J0696; J1815; J1940; J1956; J2405; J3370; J7040; J7042; J7050; J7613; J8540; 99291-25; G0479; J7030